=== PATIENT | female | born 1965 | race Two or more races ===

== ENCOUNTER 2022-12-04 17:46 | Emergency (ER) | payer OTHER ==
[~2022-12-04] VITALS: Ht 167.6 cm; Wt 131.2 kg
[2022-12-04 18:00] VITALS: BP 129/60; RESP 24; O2SAT 95
[2022-12-04 18:31] VITALS: PULSE 90
[2022-12-04 19:09] LABS: Basophils # (auto) 0.1 10 ^3/uL (0-0.2); Eosinophils # (auto) 0.3 10 ^3/uL (0-0.8); Hemoglobin 13.1 g/dL (12.2-16.2); Mean Corpuscular Hemoglobin 26.6 pg (28.0-32.0); Monocytes # (auto) 0.9 10 ^3/uL (0-1.3); White Blood Cell 14.9 10^3/uL (4.4-10.8)
[2022-12-04 19:10] LABS: Basophils % (auto) 0.8 % (0.0-2.0); Hematocrit 40.1 % (36.0-46.0); Lymphocytes # (auto) 2.4 10 ^3/uL (0.4-5.4); Lymphocytes % (auto) 16.2 % (10.0-50.0); Mean Corpuscular Hgb Conc. 32.6 g/dL (32.0-36.0); Mean Corpuscular Volume 81.7 fL (80.0-100.0); Monocytes % (auto) 5.8 % (0.0-12.0); Neutrophils # (auto) 11.2 10 ^3/uL (1.6-8.6); Neutrophils % (auto) 75.2 % (37.0-80.0); Red Blood Cells 4.91 10^6/uL (4.0-5.20); Red Cell Distribution Width 15.2 % (11.8-14.3)
[2022-12-04 19:37] LABS: Alanine Aminotransferase 33 U/L (7-40); Albumin 4.3 g/dL (3.2-4.8); Alkaline Phosphatase 145 U/L (46-116); Anion Gap 8 (5-15); Aspartate Aminotransferase 30 U/L (13-40); BUN/Creatinine Ratio 15.8 (10.0-20.0); Blood Urea Nitrogen 22 mg/dL (9-23); Calcium 9.4 mg/dL (8.7-10.4); Carbon Dioxide 25 mmol/L (20-30); Chloride 101 mmol/L (98-107); Glucose 141 mg/dL (74-106); Potassium 4.1 mmol/L (3.5-5.1); Sodium 134 mmol/L (136-145)
[2022-12-04 19:38] LABS: Bilirubin, Total 0.4 mg/dL (0.2-1.0); Total Protein 7.6 g/dL (5.7-8.2)
[2022-12-04 20:20] LABS: Urine Bacteria FEW /hpf (None Seen); Urine Blood Negative /uL (Negative); Urine Clarity CLOUDY (Clear); Urine Color Yellow (Yellow); Urine Hyaline Cast FEW /lpf (0 - 2); Urine Mucus FEW (None Seen); Urine Protein, UAD 1+ (Negative); Urine Urobilinogen Normal (Negative); Urine WBC 1 /hpf (0 - 5); Urine pH 5.5 (5.0-8.0)
== END 2022-12-04 20:00 | disposition left against medical advice (07) ==
LOC: ER 17:46
DX: M79.89 Other specified soft tissue disorders (principal); M79.605 Pain in left leg; M79.604 Pain in right leg; R11.0 Nausea; Z53.21 Procedure and treatment not carried out due to patient leaving prior to being seen by health care provider
CPT/HCPCS: 36415; 80053; 81001; 83880; 84484; 85025; 93005

== ENCOUNTER 2023-07-22 18:08 | Inpatient (IN) | payer OTHER ==
[~2023-07-22] VITALS: Ht 167.6 cm; Wt 126.3 kg
[2023-07-22 19:33] LABS: Hemoglobin 16.2 g/dL (12.2-16.2); Mean Corpuscular Hemoglobin 27.5 pg (28.0-32.0); Mean Corpuscular Hgb Conc. 33.1 g/dL (32.0-36.0); Mean Corpuscular Volume 83.2 fL (80.0-100.0); Red Blood Cells 5.89 10^6/uL (4.0-5.20); Red Cell Distribution Width 15.5 % (11.8-14.3); White Blood Cell 26.4 10^3/uL (4.4-10.8)
[2023-07-22 19:36] LABS: Basophils % (manual) 0 (0.0-2.0); Blast Cells 0; Eosinophils % (manual) 0 (0-7); Metamyelocytes % 0; Myelocytes % 0; Promyelocytes % 0; Reactive Lymphocytes 0
[2023-07-22 20:15] LABS: Alanine Aminotransferase 13 U/L (7-40); Albumin 4.8 g/dL (3.2-4.8); Alkaline Phosphatase 125 U/L (46-116); Anion Gap 19 (5-15); Aspartate Aminotransferase 23 U/L (13-40); BUN/Creatinine Ratio 9.7 (10.0-20.0); Blood Urea Nitrogen 27 mg/dL (9-23); Calcium 10.8 mg/dL (8.7-10.4); Carbon Dioxide 19 mmol/L (20-30); Chloride 99 mmol/L (98-107); Glucose 200 mg/dL (74-106); Lipase 45 U/L (12-53); Potassium 2.8 mmol/L (3.5-5.1); Sodium 137 mmol/L (136-145)
[2023-07-22 20:16] LABS: Bilirubin, Total 1.5 mg/dL (0.2-1.0); Total Protein 8.2 g/dL (5.7-8.2)
[2023-07-22 20:18] LABS: Band Neutrophils % (manual) 15; Lymphocytes % (manual) 11 (10.0-50.0); Monocytes % (manual) 18 (0-12)
[2023-07-22 20:19] LABS: Platelet Estimate Increased
[2023-07-22] MEDS: cefTRIAXone 1GM/50ML D5W 50 ML IV ONE (20:30)
[2023-07-22] MEDS: PROCHLORPERAZINE EDISYLATE 5 MG/ML 2ML VIAL IV ONE (20:32)
[2023-07-22] MEDS: PANTOPRAZOLE 40 MG/10 ML VIAL INJ IV ONE (20:32)
[2023-07-22 21:46] LABS: Lactic Acid w/Reflex 7.8 mmol/L (0.4-2.0)
[2023-07-22 22:22] VITALS: PULSE 131; RESP 20; O2SAT 95
[2023-07-22] MEDS: SODIUM CHLORIDE 0.9% 500 ML IVB ONE (22:22)
[2023-07-22] MEDS: POTASSIUM CHL 20MEQ/100ML 100 ML IV ONE (22:26)
[2023-07-22] MEDS: POTASSIUM CHL 20 Meq TABLET PO ONE (22:43)
[2023-07-22] MEDS: HYDROmorphone HCL 2 MG/ML VL/or syr IV ONE (23:03)
[2023-07-22] MEDS: VANCOMYCIN 1GM/200ML 200 ML IV ONE (23:45)
[2023-07-23] VITALS (13 sets, daily range): BP systolic 80–137; BP diastolic 34–114; PULSE 89–117; RESP 15–35; TEMP 98.5; O2SAT 91–100
[2023-07-23] MEDS: SODIUM CHLORIDE 0.9% 1,000 ML IV ONE ×3 (01:30→17:26)
[2023-07-23 02:46] LABS: Urine Amorphous Crystal FEW /hpf (None Seen); Urine Bacteria FEW /hpf (None Seen); Urine Blood Negative /uL (Negative); Urine Clarity Ex.Turbid (Clear); Urine Color Light-Orange (Yellow); Urine Hyaline Cast MANY /lpf (0 - 2); Urine Mucus FEW (None Seen); Urine Protein, UAD 2+ (Negative); Urine Specific Gravity 1.023 (1.001-1.035); Urine Urobilinogen Normal (Negative); Urine WBC 6 /hpf (0 - 5)
[2023-07-23] MEDS ORDERED: MORPHINE SULFATE INJ 2 MG/ml SYRG IV PRN (03:15)
[2023-07-23] MEDS ORDERED: VANCOMYCIN PER PHARMACY 0 MG IV SCH (03:15)
[2023-07-23] MEDS ORDERED: NITROGLYCERIN 0.4 MG SL TAB SL PRN (03:15)
[2023-07-23] MEDS: FUROSEMIDE 20 MG/2 ML VIAL IV ONE (03:36)
[2023-07-23] MEDS: PIPERACILLIN-TAZOB 3.375GM 100 ML IV SCH (04:07)
[2023-07-23 04:35] LABS: Basophils # (auto) 0 10 ^3/uL (0-0.2); Eosinophils # (auto) 0 10 ^3/uL (0-0.8); Lymphocytes # (auto) 1.4 10 ^3/uL (0.4-5.4)
[2023-07-23 04:37] LABS: Basophils % (auto) 0.1 % (0.0-2.0); Hematocrit 51.7 % (36.0-46.0); Hemoglobin 16.6 g/dL (12.2-16.2); Lymphocytes % (auto) 7.4 % (10.0-50.0); Mean Corpuscular Hemoglobin 27.2 pg (28.0-32.0); Mean Corpuscular Hgb Conc. 32.1 g/dL (32.0-36.0); Mean Corpuscular Volume 84.8 fL (80.0-100.0); Monocytes # (auto) 1.5 10 ^3/uL (0-1.3); Monocytes % (auto) 7.6 % (0.0-12.0); Neutrophils # (auto) 16.2 10 ^3/uL (1.6-8.6); Neutrophils % (auto) 84.9 % (37.0-80.0); Red Cell Distribution Width 15.7 % (11.8-14.3); White Blood Cell 19.1 10^3/uL (4.4-10.8)
[2023-07-23 04:43] LABS: Alanine Aminotransferase 20 U/L (7-40); Albumin 4.3 g/dL (3.2-4.8); Alkaline Phosphatase 108 U/L (46-116); Anion Gap 16 (5-15); Aspartate Aminotransferase 45 U/L (13-40); BUN/Creatinine Ratio 8.2 (10.0-20.0); Bilirubin, Total 1.6 mg/dL (0.2-1.0); Blood Urea Nitrogen 27 mg/dL (9-23); Calcium 9.9 mg/dL (8.7-10.4); Carbon Dioxide 17 mmol/L (20-30); Chloride 103 mmol/L (98-107); Glucose 159 mg/dL (74-106); Potassium 3.7 mmol/L (3.5-5.1); Sodium 136 mmol/L (136-145); Total Protein 7.4 g/dL (5.7-8.2)
[2023-07-23] MEDS: HYDROcodone-ACET 5/325MG TAB PO PRN (05:06)
[2023-07-23] MEDS: SODIUM CHLORIDE 0.9% 2,000 ML IV ONE ×2 (07:50→12:08)
[2023-07-23] MEDS: ADENOSINE 6 MG/2 ML INJ IV ONE ×2 (07:51→07:54)
[2023-07-23] MEDS: ONDANSETRON HCL 4 MG/2 ML VIAL ONE (07:54)
[2023-07-23] MEDS: MORPHINE SULFATE 4 MG/ML SYR/VIAL IV ONE (07:54)
[2023-07-23] MEDS: MORPHINE SULFATE 4 MG/ML SYR/VIAL ONE (07:54)
[2023-07-23] MEDS: ONDANSETRON HCL 4 MG/2 ML VIAL IV ONE (07:55)
[2023-07-23] MEDS: HYDROmorphone HCL 2 MG/ML VL/or syr IV ONE ×2 (08:00→14:05)
[2023-07-23 08:21] LABS: Amphetamine Screen, Urine Pos (NEGATIVE); Barbiturate Scree,Urine Neg (NEGATIVE); Benzodiazephine Screen, Urine Neg (NEGATIVE); Cannabinoid Screen, Urine Neg (NEGATIVE); Cocaine Screen, Urine Neg (NEGATIVE); Opiate Scree,Urine Neg (NEGATIVE); Phencyclidine Screen, Urine Neg (NEGATIVE)
[2023-07-23] MEDS: ALBUMIN 25% 100 ML IV ONE (09:38)
[2023-07-23] MEDS: METOPROLOL TARTRATE 25 MG TAB PO SCH (10:00)
[2023-07-23] MEDS: MAGNESIUM SULFATE 1GM/100ML 100 ML IV SCH (10:30)
[2023-07-23 11:12] LABS: Creatinine, Urine 233.81 mg/dL (30.0-125.0)
[2023-07-23 11:14] LABS: Base Excess -10.7 mmol/L (-2.0-2.0)
[2023-07-23] MEDS ORDERED: D5W/SOD CHL 0.45%/KCL 20MEQ 1,000 ML IV SCH (11:15)
[2023-07-23] MEDS: MEROPENEM 1GM IVPB 50 ML IV ONE (11:28)
[2023-07-23 12:05] LABS: INR 1.32 (0.9-1.15); Partial Thromboplastin Time 27.9 SEC (24.5-34.5); Prothrombin Time 13.7 sec (9.3-11.8); Triglycerides 99 mg/dL (< 150)
[2023-07-23 12:06] LABS: LDL Cholesterol 27 mg/dL (< 100)
[2023-07-23 12:07] LABS: Bilirubin, Direct 1.4 mg/dL (<0.3); Cholesterol 80 mg/dL (< 200); HDL Cholesterol 21 mg/dL (40-59)
[2023-07-23 13:29] LABS: CRP High Sensitivity > 20.00 mg/dL (<1.0)
[2023-07-23] MEDS: SODIUM BICARB 8.4% 50Meq/50ml SYR Vial IV ONE (14:57)
[2023-07-23] MEDS: NOREPINEPHRINE 8 MG/250ML KIT 250 ML IV SCH (14:58)
[2023-07-23] MEDS: POTASSIUM CHL 20MEQ/100ML 100 ML IV ONE (17:25)
[2023-07-23] MEDS: MORPHINE SULFATE INJ 2 MG/ml SYRG IV PRN (18:48)
[2023-07-23] MEDS: ONDANSETRON HCL 4 MG/2 ML VIAL IV PRN (18:50)
[2023-07-23] MEDS: MEROPENEM 500MG IVPB 50 ML IV SCH (21:26)
[2023-07-23 22:55] LABS: Rapid Influenza A Negative (Negative); Rapid Influenza B Negative (Negative)
[2023-07-23 23:40] LABS: Base Excess -13.2 mmol/L (-2.0-2.0)
[2023-07-24] VITALS (118 sets, daily range): BP systolic 49–146; BP diastolic 18–122; PULSE 81–159; RESP 14–39; TEMP 98.3–103.3; O2SAT 70–100
[2023-07-24] MEDS: SODIUM BICARB 50mEq/50ml Vial 50 ML in SOD CHL 0.45% 1,000 ML IV SCH (00:42)
[2023-07-24] MEDS: ALBUMIN 5% 250 ML IV ONE (00:42)
[2023-07-24] MEDS: SODIUM BICARB 8.4% 50Meq/50ml SYR Vial IV ONE ×2 (00:42→07:58)
[2023-07-24 03:03] LABS: Hemoglobin 12.1 g/dL (12.2-16.2); Mean Corpuscular Volume 82.9 fL (80.0-100.0)
[2023-07-24 03:04] LABS: Hematocrit 37.1 % (36.0-46.0); Mean Corpuscular Hemoglobin 27.1 pg (28.0-32.0); Mean Corpuscular Hgb Conc. 32.7 g/dL (32.0-36.0); Red Blood Cells 4.47 10^6/uL (4.0-5.20); Red Cell Distribution Width 15.6 % (11.8-14.3); White Blood Cell 11.2 10^3/uL (4.4-10.8)
[2023-07-24 03:30] LABS: Alanine Aminotransferase 82 U/L (7-40); Albumin 3.7 g/dL (3.2-4.8); Alkaline Phosphatase 71 U/L (46-116); Anion Gap 15 (5-15); Aspartate Aminotransferase 124 U/L (13-40); BUN/Creatinine Ratio 11.8 (10.0-20.0); Calcium 8.9 mg/dL (8.5-10.1); Carbon Dioxide 14 mmol/L (20-30); Chloride 108 mmol/L (98-107); Creatine Kinase IFCC 594 U/L (34-145); Glucose 96 mg/dL (74-106); Magnesium 1.7 mg/dL (1.6-2.6); Potassium 4.6 mmol/L (3.5-5.1); Sodium 137 mmol/L (136-145)
[2023-07-24 03:31] LABS: Bilirubin, Total 2.4 mg/dL (0.2-1.0); Total Protein 6.1 g/dL (5.7-8.2)
[2023-07-24 03:35] LABS: Blood Urea Nitrogen 50 mg/dL (9-23)
[2023-07-24 03:37] LABS: Lactic Acid w/Reflex 3.7 mmol/L (0.4-2.0)
[2023-07-24 03:38] LABS: Basophils % (manual) 0 (0.0-2.0); Blast Cells 0; Eosinophils % (manual) 0 (0-7); Metamyelocytes % 0; Promyelocytes % 0; Reactive Lymphocytes 0
[2023-07-24] MEDS: KETOROLAC TROMETH 30 MG/ML 1ML VIAL IV ONE (04:06)
[2023-07-24] MEDS: FUROSEMIDE 100 MG/10ML VIAL IV ONE (04:08)
[2023-07-24] MEDS: FUROSEMIDE INJECTION 10 ML ONE (04:10)
[2023-07-24 04:18] LABS: Band Neutrophils % (manual) 21; Lymphocytes % (manual) 12 (10.0-50.0); Monocytes % (manual) 8 (0-12); Myelocytes % 1
[2023-07-24 04:19] LABS: Platelet Estimate Adequate
[2023-07-24 07:20] LABS: Base Excess -11.7 mmol/L (-2.0-2.0)
[2023-07-24] MEDS: BUMETANIDE INJECTION 25 MG in GIVE UN-DILUTED 0 ML IV SCH (08:23)
[2023-07-24] MEDS ORDERED: PHENYLEPHRINE INJ 80 MG in SODIUM CHL 0.9% 242 ML IV SCH (08:30)
[2023-07-24] MEDS: VASOPRESSIN 20 UNITS in SODIUM CHL 0.9% 99 ML IV SCH (09:15)
[2023-07-24] MEDS: NOREPINEPHRINE BITARTRATE 32 MG in SODIUM CHL 0.9% 218 ML IV SCH (09:17)
[2023-07-24] MEDS: LINEZOLID 600MG/300ML 300 ML IV SCH (09:44)
[2023-07-24 10:00] LABS: Base Excess -9.2 mmol/L (-2.0-2.0)
[2023-07-24] MEDS: LORazepam 2MG/ML-1ML VIAL IV PRN (10:48)
[2023-07-24] MEDS: LIDOCAINE 5% TOPICAL PATCH TOP ONE (11:56)
[2023-07-24 15:00] LABS: Lactic Acid w/Reflex 3.4 mmol/L (0.4-2.0)
[2023-07-24] MEDS: LEVALBUTEROL HCL 1.25 MG/3 ML NEB NEB PRN (15:24)
[2023-07-24] MEDS: IPRATROPIUM BROM 0.5 MG/2.5ML INH SOL NEB PRN (15:24)
[2023-07-24] MEDS: LORazepam 2MG/ML-1ML VIAL IV ONE (15:49)
[2023-07-24] MEDS: ROCURONIUM 10MG/ML 10ML VIAL IV ONE (16:24)
[2023-07-24] MEDS: ETOMIDATE (2MG/ML) 20ML VIAL IV ONE (16:24)
[2023-07-24] MEDS: MIDAZOLAM DRIP 50 mg/50mL 50 ML IV ONE (16:26)
[2023-07-24] MEDS: fentaNYL Drip 2500mCg/250mlNS 250 ML IV ONE (16:27)
[2023-07-24] MEDS: MIDAZOLAM DRIP 50 mg/50mL 50 ML IV SCH ×2 (16:30→22:18)
[2023-07-24] MEDS: PROPOFOL 100 ML IV SCH (16:30)
[2023-07-24] MEDS: fentaNYL Drip 2500mCg/250mlNS 250 ML IV SCH (16:59)
[2023-07-24] MEDS: ACETAMINOPHEN 650 MG RECT SUPP PR ONE ×2 (17:27→17:43)
[2023-07-24] MEDS: ACETAMINOPHEN IV 1000 MG/100ML (10MG/ML) IV PRN (18:35)
[2023-07-24] MEDS: EPINEPHrine HCL 250 ML IV SCH (18:42)
[2023-07-24 21:04] LABS: Chloride 105 mmol/L (98-107); Potassium 5.4 mmol/L (3.5-5.1); Sodium 139 mmol/L (136-145)
[2023-07-24 21:05] LABS: Anion Gap 14 (5-15); Carbon Dioxide 20 mmol/L (20-30)
[2023-07-24 21:06] LABS: Calcium 9.2 mg/dL (8.5-10.1)
[2023-07-24 21:10] LABS: Glucose 132 mg/dL (74-106)
[2023-07-24 21:11] LABS: BUN/Creatinine Ratio 14.4 (10.0-20.0)
[2023-07-24 21:34] LABS: Blood Urea Nitrogen 68 mg/dL (9-23)
[2023-07-24] MEDS ORDERED: VANCOMYCIN 1GM/200ML 200 ML IV ONE (22:00)
[2023-07-24 22:46] LABS: Base Excess -10.7 mmol/L (-2.0-2.0)
[2023-07-24] MEDS: SODIUM ZIRCONIUM CYCL 10 GM PAK PO ONE (23:55)
[2023-07-24] MEDS: ACETAMINOPHEN 325 MG TAB PO PRN (23:56)
[2023-07-25] VITALS (134 sets, daily range): BP systolic 67–186; BP diastolic 28–120; PULSE 86–148; RESP 16–28; TEMP 97.9–103.6; O2SAT 82–100
[2023-07-25 05:24] LABS: Hematocrit 43.5 % (36.0-46.0); Hemoglobin 14.2 g/dL (12.2-16.2); Mean Corpuscular Hemoglobin 26.9 pg (28.0-32.0); Mean Corpuscular Hgb Conc. 32.5 g/dL (32.0-36.0); Mean Corpuscular Volume 82.7 fL (80.0-100.0); Red Blood Cells 5.26 10^6/uL (4.0-5.20); Red Cell Distribution Width 16.2 % (11.8-14.3); White Blood Cell 12.8 10^3/uL (4.4-10.8)
[2023-07-25 05:26] LABS: Protein, Urine 179.6 mg/dL (0.0-11.9)
[2023-07-25 05:27] LABS: Basophils % (manual) 0 (0.0-2.0); Blast Cells 0; Eosinophils % (manual) 0 (0-7); Metamyelocytes % 0; Myelocytes % 0; Promyelocytes % 0
[2023-07-25 05:29] LABS: Creatinine, Urine 115.34 mg/dL (30.0-125.0); Urine Protein/Creatinine Ratio 1.56
[2023-07-25 05:38] LABS: Alanine Aminotransferase 102 U/L (7-40); Albumin 3.5 g/dL (3.2-4.8); Alkaline Phosphatase 123 U/L (46-116); Anion Gap 16 (5-15); Aspartate Aminotransferase 124 U/L (13-40); BUN/Creatinine Ratio 10.3 (10.0-20.0); Calcium 9.3 mg/dL (8.7-10.4); Carbon Dioxide 15 mmol/L (20-30); Chloride 105 mmol/L (98-107); Glucose 109 mg/dL (74-106); Magnesium 2.3 mg/dL (1.6-2.6); Potassium 5.2 mmol/L (3.5-5.1); Sodium 136 mmol/L (136-145); Total Protein 6.2 g/dL (5.7-8.2)
[2023-07-25 05:47] LABS: Blood Urea Nitrogen 52 mg/dL (9-23)
[2023-07-25 05:50] LABS: Lactic Acid w/Reflex 2.9 mmol/L (0.4-2.0)
[2023-07-25 05:56] LABS: Bilirubin, Total 2.4 mg/dL (0.2-1.0)
[2023-07-25 06:13] LABS: Lymphocytes % (manual) 20 (10.0-50.0); Monocytes % (manual) 9 (0-12); Reactive Lymphocytes 1
[2023-07-25 06:14] LABS: Band Neutrophils % (manual) 11; Platelet Estimate Adequate
[2023-07-25 06:16] LABS: Large Platelets FEW
[2023-07-25] MEDS: SODIUM CHL 0.9% 1000 ML BAG XX ONE (07:15)
[2023-07-25 07:21] LABS: Base Excess -11.5 mmol/L (-2.0-2.0)
[2023-07-25 08:07] LABS: Complement C3 117 mg/dL (82-167)
[2023-07-25] MEDS: SODIUM BICARB 8.4% 50Meq/50ml SYR Vial IV ONE (08:43)
[2023-07-25 09:03] LABS: % Iron Saturation 4.7 % (15-50)
[2023-07-25] MEDS ORDERED: ENOXAPARIN SOD 40 MG/0.4 ML SYRINGE SC SCH (10:00)
[2023-07-25 12:07] LABS: Anti-Centromere B Antibody <0.2 AI (0.0-0.9); Anti-Jo-1 Antibody <0.2 AI (0.0-0.9); Anti-dsDNA Antibody <1 IU/mL (0-9); Antichromatin Antibody <0.2 AI (0.0-0.9); Antiscleroderma-70 Antibody <0.2 AI (0.0-0.9); RNP Antibody <0.2 AI (0.0-0.9); Sjogren's Anti-SS-A Antibody <0.2 AI (0.0-0.9); Sjogren's Anti-SS-B Antibody <0.2 AI (0.0-0.9); Smith Antibody <0.2 AI (0.0-0.9)
[2023-07-25] MEDS: ALBUMIN 25% 100 ML IV ONE ×3 (13:15→16:55)
[2023-07-25 14:45] LABS: INR 1.25 (0.9-1.15); Partial Thromboplastin Time 32.8 SEC (24.5-34.5)
[2023-07-25] MEDS: ALBUMIN 25% 50 ML IV SCH (17:30)
[2023-07-25] MEDS ORDERED: CLINIMIX PER PHARMACY 0 ML IV SCH (19:45)
[2023-07-25] MEDS ORDERED: AMINO ACID INFUSION IN D10W 1,000 ML IV SCH (19:45)
[2023-07-25] MEDS: PHENYLEPHRINE INJ 80 MG in SODIUM CHL 0.9% 242 ML IV SCH (20:30)
[2023-07-25] MEDS: PHENYLEPHRINE HCL 10 MG/ML VL ONE (20:41)
[2023-07-25] MEDS: PHENYLEPHRINE IV 250 ML IV ONE (20:41)
[2023-07-25] MEDS: ENOXAPARIN SOD 30 MG/0.3 ML SYRINGE SC SCH (20:47)
[2023-07-25] MEDS ORDERED: EPOETIN ALFA-EPBX 10,000 UNIT/1ML VIAL SC ONE (21:00)
[2023-07-25] MEDS: AMINO ACID INFUSION IN D5W 1,000 ML IV NR (22:39)
[2023-07-26] VITALS (108 sets, daily range): BP systolic 58–170; BP diastolic 27–107; PULSE 78–104; RESP 12–26; TEMP 97.5–100.2; O2SAT 93–100
[2023-07-26] MEDS ORDERED: DEXTROSE (50%) 50ML SYRG IV SCH
[2023-07-26] MEDS ORDERED: ACCU-CHEK COMFORT CURVE STRIP VI SCH
[2023-07-26] MEDS ORDERED: InsuLIN REG 1unit/0.01ml Soln (100units/ml) SC SCH
[2023-07-26] MEDS: InsuLIN REG 1unit/0.01ml Soln (100units/ml) SC SCH
[2023-07-26] MEDS: ACCU-CHEK COMFORT CURVE STRIP VI SCH (00:29)
[2023-07-26 04:11] LABS: Hematocrit 33.6 % (36.0-46.0); Hemoglobin 11.4 g/dL (12.2-16.2); Mean Corpuscular Hemoglobin 27.2 pg (28.0-32.0); Mean Corpuscular Hgb Conc. 33.9 g/dL (32.0-36.0); Mean Corpuscular Volume 80.3 fL (80.0-100.0); Red Blood Cells 4.19 10^6/uL (4.0-5.20); Red Cell Distribution Width 15.7 % (11.8-14.3); White Blood Cell 10.9 10^3/uL (4.4-10.8)
[2023-07-26 04:17] LABS: Basophils % (manual) 0 (0.0-2.0); Blast Cells 0; Metamyelocytes % 0; Myelocytes % 0; Promyelocytes % 0; Reactive Lymphocytes 0
[2023-07-26 04:28] LABS: % Iron Saturation 7.7 % (15-50)
[2023-07-26 04:29] LABS: Alanine Aminotransferase 77 U/L (7-40); Albumin 3.7 g/dL (3.2-4.8); Alkaline Phosphatase 137 U/L (46-116); Anion Gap 12 (5-15); Aspartate Aminotransferase 160 U/L (13-40); Blood Urea Nitrogen 43 mg/dL (9-23); Calcium 9.1 mg/dL (8.5-10.1); Carbon Dioxide 27 mmol/L (20-30); Chloride 101 mmol/L (98-107); Glucose 133 mg/dL (74-106); Potassium 3.9 mmol/L (3.5-5.1); Sodium 140 mmol/L (136-145)
[2023-07-26 04:35] LABS: Band Neutrophils % (manual) 5; Eosinophils % (manual) 1 (0-7); Lymphocytes % (manual) 14 (10.0-50.0); Monocytes % (manual) 7 (0-12); Platelet Estimate Adequate
[2023-07-26] MEDS: SODIUM CHL 0.9% 1000 ML BAG XX ONE (07:00)
[2023-07-26 09:33] LABS: Base Excess 3.3 mmol/L (-2.0-2.0)
[2023-07-26 09:50] LABS: Hepatitis B Surface Antigen Negative (Negative)
[2023-07-26 10:12] LABS: Hepatitis A Ab IgM Negative; Hepatitis B Core IgM Negative; Hepatitis C Antibody Negative (Negative)
[2023-07-26 12:06] LABS: RPR Quant 1:32 titer (NonRea<1:1)
[2023-07-26] MEDS: CATHFLO ACTIVASE (ALTEPLASE) 2 MG VIAL IV ONE (12:16)
[2023-07-26] MEDS: FUROSEMIDE 40 MG/4 ML VIAL IV ONE (13:32)
[2023-07-26] MEDS: HYDROCORTISONE SOD SUCC 100 MG/2ML INJ VIAL IV SCH (13:37)
[2023-07-26 17:06] LABS: Antimyeloperoxidase (MPO) Ab <0.2 units (0.0-0.9); Antiproteinase 3 (PR-3) Ab <0.2 units (0.0-0.9)
[2023-07-26] MEDS: AMINO ACID INFUSION IN D5W 1,000 ML IV NR (20:33)
[2023-07-26] MEDS ORDERED: EPOETIN ALFA-EPBX 10,000 UNIT/1ML VIAL SC ONE (21:00)
[2023-07-27] VITALS (107 sets, daily range): BP systolic 88–141; BP diastolic 48–86; PULSE 77–94; RESP 14–22; TEMP 98.2–100.8; O2SAT 89–100
[2023-07-27] MEDS: GASTROGRAFIN 120 ML SOL ONE (02:24)
[2023-07-27 04:20] LABS: Hemoglobin 11.5 g/dL (12.2-16.2)
[2023-07-27 04:22] LABS: Hematocrit 34.7 % (36.0-46.0); Mean Corpuscular Hemoglobin 26.7 pg (28.0-32.0); Mean Corpuscular Hgb Conc. 33.2 g/dL (32.0-36.0); Mean Corpuscular Volume 80.4 fL (80.0-100.0); Red Blood Cells 4.31 10^6/uL (4.0-5.20); Red Cell Distribution Width 15.6 % (11.8-14.3)
[2023-07-27 04:29] LABS: Basophils % (manual) 0 (0.0-2.0); Blast Cells 0; Eosinophils % (manual) 0 (0-7); Metamyelocytes % 0; Myelocytes % 0; Promyelocytes % 0; Reactive Lymphocytes 0
[2023-07-27 04:41] LABS: Alanine Aminotransferase 64 U/L (7-40); Alkaline Phosphatase 137 U/L (46-116); Anion Gap 7 (5-15); BUN/Creatinine Ratio 29.8 (10.0-20.0); Calcium 9.4 mg/dL (8.5-10.1); Carbon Dioxide 32 mmol/L (20-30); Chloride 100 mmol/L (98-107); Glucose 159 mg/dL (74-106); Potassium 3.6 mmol/L (3.5-5.1); Sodium 139 mmol/L (136-145)
[2023-07-27 04:42] LABS: Albumin 3.6 g/dL (3.2-4.8); Aspartate Aminotransferase 117 U/L (13-40); Bilirubin, Total 1.6 mg/dL (0.2-1.0); Blood Urea Nitrogen 59 mg/dL (9-23); Phosphorus 5.9 mg/dL (2.4-5.1); Total Protein 6.2 g/dL (5.7-8.2)
[2023-07-27 04:48] LABS: CRP High Sensitivity > 20.00 mg/dL (<1.0)
[2023-07-27 04:56] LABS: Band Neutrophils % (manual) 7; Lymphocytes % (manual) 8 (10.0-50.0); Monocytes % (manual) 2 (0-12); Platelet Estimate Adequate
[2023-07-27] MEDS: POTASSIUM CHL 20MEQ/100ML 100 ML IV ONE (06:45)
[2023-07-27 07:46] LABS: Base Excess 3.5 mmol/L (-2.0-2.0)
[2023-07-27] MEDS: FUROSEMIDE 40 MG/4 ML VIAL IV SCH (09:49)
[2023-07-27] MEDS: NOREPINEPHRINE BITARTRATE 32 MG in SODIUM CHL 0.9% 218 ML IV SCH (10:07)
[2023-07-27] MEDS ORDERED: TPN PER PHARMACY 0 ML IV SCH ×2 (12:30)
[2023-07-27] MEDS: PANTOPRAZOLE 40 MG/10 ML VIAL INJ IV ONE (12:38)
[2023-07-27 13:07] LABS: Cytoplasmic (C-ANCA) <1:20 titer (Neg:<1:20); Perinuclear (P-ANCA) <1:20 titer (Neg:<1:20)
[2023-07-27] MEDS ORDERED: AMINO ACID INFUSION IN D5W 1,000 ML IV SCH (20:00)
[2023-07-27] MEDS ORDERED: TPN PER PHARMACY IV NR (20:00)
[2023-07-27] MEDS: TPN PER PHARMACY IV NR (20:25)
[2023-07-27] MEDS: MEROPENEM 1GM IVPB 50 ML IV SCH (21:50)
[2023-07-28] VITALS (102 sets, daily range): BP systolic 91–143; BP diastolic 50–92; PULSE 74–94; RESP 6–22; TEMP 97.9–100.9; O2SAT 70–100
[2023-07-28 04:26] LABS: Hemoglobin 11.6 g/dL (12.2-16.2)
[2023-07-28 04:31] LABS: Hematocrit 34.7 % (36.0-46.0); Mean Corpuscular Hemoglobin 26.9 pg (28.0-32.0); Mean Corpuscular Hgb Conc. 33.4 g/dL (32.0-36.0); Mean Corpuscular Volume 80.5 fL (80.0-100.0); Red Blood Cells 4.31 10^6/uL (4.0-5.20); Red Cell Distribution Width 15.8 % (11.8-14.3); White Blood Cell 16.7 10^3/uL (4.4-10.8)
[2023-07-28 04:34] LABS: Basophils % (manual) 0 (0.0-2.0); Blast Cells 0; Eosinophils % (manual) 0 (0-7); Metamyelocytes % 0; Myelocytes % 0; Promyelocytes % 0; Reactive Lymphocytes 0
[2023-07-28 04:40] LABS: INR 1.24 (0.9-1.15); Partial Thromboplastin Time 26.2 SEC (24.5-34.5); Prothrombin Time 12.9 sec (9.3-11.8)
[2023-07-28 04:43] LABS: Alanine Aminotransferase 53 U/L (7-40); Albumin 3.5 g/dL (3.2-4.8); Alkaline Phosphatase 147 U/L (46-116); Anion Gap 7 (5-15); Aspartate Aminotransferase 132 U/L (13-40); BUN/Creatinine Ratio 46.9 (10.0-20.0); Calcium 9.1 mg/dL (8.5-10.1); Carbon Dioxide 32 mmol/L (20-30); Chloride 103 mmol/L (98-107); Glucose 152 mg/dL (74-106); Magnesium 2.3 mg/dL (1.6-2.6); Potassium 3.2 mmol/L (3.5-5.1); Sodium 142 mmol/L (136-145)
[2023-07-28 04:44] LABS: Phosphorus 5.2 mg/dL (2.4-5.1); Total Protein 6.2 g/dL (5.7-8.2)
[2023-07-28 04:51] LABS: CRP High Sensitivity > 20.00 mg/dL (<1.0)
[2023-07-28 04:53] LABS: Blood Urea Nitrogen 82 mg/dL (9-23)
[2023-07-28 04:56] LABS: Band Neutrophils % (manual) 3; Lymphocytes % (manual) 14 (10.0-50.0); Monocytes % (manual) 2 (0-12)
[2023-07-28 04:57] LABS: Platelet Estimate Adequate
[2023-07-28 07:13] LABS: Base Excess 5.6 mmol/L (-2.0-2.0)
[2023-07-28] MEDS: POTASSIUM CHL 20MEQ/100ML 100 ML IV SCH (08:02)
[2023-07-28] MEDS ORDERED: TPN PER PHARMACY 0 ML IV SCH (09:00)
[2023-07-28] MEDS: TPN PER PHARMACY IV NR ×2 (10:00→20:12)
[2023-07-28] MEDS: HYDROCORTISONE SOD SUCC 100 MG/2ML INJ VIAL IV SCH (10:30)
[2023-07-28] MEDS: ENOXAPARIN SOD 40 MG/0.4 ML SYRINGE SC SCH (10:30)
[2023-07-28] MEDS: PANTOPRAZOLE 40 MG/10 ML VIAL INJ IV SCH (10:30)
[2023-07-29] VITALS (110 sets, daily range): BP systolic 89–138; BP diastolic 49–79; PULSE 76–92; RESP 11–21; TEMP 98.4–100.7; O2SAT 90–99
[2023-07-29 04:09] LABS: Alanine Aminotransferase 40 U/L (7-40); Albumin 3.3 g/dL (3.2-4.8); Alkaline Phosphatase 136 U/L (46-116); Anion Gap 7 (5-15); Aspartate Aminotransferase 114 U/L (13-40); BUN/Creatinine Ratio 70.9 (10.0-20.0); Calcium 9.1 mg/dL (8.7-10.4); Carbon Dioxide 33 mmol/L (20-30); Chloride 107 mmol/L (98-107); Glucose 162 mg/dL (74-106); Magnesium 2.5 mg/dL (1.6-2.6); Potassium 3.5 mmol/L (3.5-5.1)
[2023-07-29 04:10] LABS: Bilirubin, Total 0.9 mg/dL (0.2-1.0); Phosphorus 4.9 mg/dL (2.4-5.1); Total Protein 6.1 g/dL (5.7-8.2)
[2023-07-29 04:33] LABS: Blood Urea Nitrogen 90 mg/dL (9-23); Sodium 147 mmol/L (136-145)
[2023-07-29 06:30] LABS: Base Excess 5.3 mmol/L (-2.0-2.0)
[2023-07-29] MEDS: SOD CHL 0.45% 1,000 ML IV ONE (06:38)
[2023-07-29] MEDS: POTASSIUM CHL 20MEQ/100ML 100 ML IV ONE (08:40)
[2023-07-29 10:17] LABS: Urine Amorphous Crystal FEW /hpf (None Seen); Urine Bacteria FEW /hpf (None Seen); Urine Blood 1+ /uL (Negative); Urine Color Yellow (Yellow); Urine Hyaline Cast FEW /lpf (0 - 2); Urine Mucus FEW (None Seen); Urine Protein, UAD TRACE (Negative); Urine Urobilinogen Normal (Negative); Urine WBC 5 /hpf (0 - 5); Urine pH 5.5 (5.0-9.0)
[2023-07-29 10:19] LABS: Urine Clarity Hazy (Clear)
[2023-07-29] MEDS: METOCLOPRAMIDE HCL 5MG/ml INJ 2ml VIAL IV SCH (13:44)
[2023-07-29] MEDS: TPN PER PHARMACY IV NR (21:37)
[2023-07-30] VITALS (107 sets, daily range): BP systolic 84–157; BP diastolic 53–116; PULSE 73–98; RESP 9–24; TEMP 97–99; O2SAT 85–98
[2023-07-30 04:07] LABS: Basophils # (auto) 0 10 ^3/uL (0-0.2); Basophils % (auto) 0.1 % (0.0-2.0); Eosinophils # (auto) 0.1 10 ^3/uL (0-0.8); Eosinophils % (auto) 0.2 % (0.0-7.0); Hematocrit 36.5 % (36.0-46.0); Hemoglobin 11.7 g/dL (12.2-16.2); Lymphocytes # (auto) 2.3 10 ^3/uL (0.4-5.4); Lymphocytes % (auto) 9.8 % (10.0-50.0); Mean Corpuscular Hemoglobin 26.3 pg (28.0-32.0); Mean Corpuscular Hgb Conc. 32.1 g/dL (32.0-36.0); Mean Corpuscular Volume 82.1 fL (80.0-100.0); Monocytes # (auto) 0.7 10 ^3/uL (0-1.3); Monocytes % (auto) 3.2 % (0.0-12.0); Neutrophils # (auto) 20.3 10 ^3/uL (1.6-8.6); Neutrophils % (auto) 86.7 % (37.0-80.0); Red Blood Cells 4.45 10^6/uL (4.0-5.20); Red Cell Distribution Width 15.9 % (11.8-14.3); White Blood Cell 23.4 10^3/uL (4.4-10.8)
[2023-07-30 04:16] LABS: Alanine Aminotransferase 35 U/L (7-40); Albumin 3.2 g/dL (3.2-4.8); Alkaline Phosphatase 158 U/L (46-116); Anion Gap 6 (5-15); Aspartate Aminotransferase 90 U/L (13-40); BUN/Creatinine Ratio 82.7 (10.0-20.0); Carbon Dioxide 34 mmol/L (20-30); Chloride 111 mmol/L (98-107); Glucose 153 mg/dL (74-106); Magnesium 2.5 mg/dL (1.6-2.6); Potassium 3.7 mmol/L (3.5-5.1); Sodium 151 mmol/L (136-145); Triglycerides 375 mg/dL (< 150)
[2023-07-30 04:17] LABS: Total Protein 6.2 g/dL (5.7-8.2)
[2023-07-30 04:27] LABS: Blood Urea Nitrogen 81 mg/dL (9-23)
[2023-07-30] MEDS: D5W 5% 1,000 ML IV SCH (06:48)
[2023-07-30 07:18] LABS: Base Excess 4.2 mmol/L (-2.0-2.0)
[2023-07-30] MEDS ORDERED: VANCOMYCIN PER PHARMACY 0 MG IV SCH (11:30)
[2023-07-30] MEDS: FLEET ENEMA(ADULT) 135 ML PR ONE (12:08)
[2023-07-30 14:18] LABS: Chloride 111 mmol/L (98-107); Potassium 3.9 mmol/L (3.5-5.1); Sodium 149 mmol/L (136-145)
[2023-07-30 14:19] LABS: Anion Gap 2 (5-15); Calcium 8.8 mg/dL (8.5-10.1); Carbon Dioxide 36 mmol/L (20-30)
[2023-07-30 14:24] LABS: BUN/Creatinine Ratio 82.7 (10.0-20.0); Glucose 246 mg/dL (74-106)
[2023-07-30 14:29] LABS: Blood Urea Nitrogen 67 mg/dL (9-23)
[2023-07-30] MEDS: VANCOMYCIN 1GM/200ML 200 ML IV SCH (15:10)
[2023-07-30] MEDS: AZITHROMYCIN 500MG/ 250ML 250 ML IV ONE (17:27)
[2023-07-30] MEDS: TPN PER PHARMACY IV NR (19:45)
[2023-07-30] MEDS: MICAFUNGIN SODIUM 100 MG in SODIUM CHL 0.9% 100 ML IV ONE (19:50)
[2023-07-31] VITALS (105 sets, daily range): BP systolic 76–168; BP diastolic 56–91; PULSE 80–101; RESP 10–21; TEMP 98.8–100.2; O2SAT 92–100
[2023-07-31 05:19] LABS: Hematocrit 32.9 % (36.0-46.0); Red Blood Cells 3.94 10^6/uL (4.0-5.20); White Blood Cell 22.9 10^3/uL (4.4-10.8)
[2023-07-31 05:21] LABS: Hemoglobin 10.4 g/dL (12.2-16.2); Mean Corpuscular Hemoglobin 26.4 pg (28.0-32.0); Mean Corpuscular Hgb Conc. 31.6 g/dL (32.0-36.0); Mean Corpuscular Volume 83.6 fL (80.0-100.0); Red Cell Distribution Width 16.3 % (11.8-14.3)
[2023-07-31 05:24] LABS: Basophils % (manual) 0 (0.0-2.0); Blast Cells 0; Eosinophils % (manual) 0 (0-7); Metamyelocytes % 0; Myelocytes % 0; Promyelocytes % 0; Reactive Lymphocytes 0
[2023-07-31 05:36] LABS: Alanine Aminotransferase 33 U/L (7-40); Albumin 2.9 g/dL (3.2-4.8); Alkaline Phosphatase 152 U/L (46-116); Anion Gap 6 (5-15); Aspartate Aminotransferase 79 U/L (13-40); BUN/Creatinine Ratio 66.3 (10.0-20.0); Bilirubin, Total 0.9 mg/dL (0.2-1.0); Blood Urea Nitrogen 61 mg/dL (9-23); Calcium 8.8 mg/dL (8.7-10.4); Carbon Dioxide 32 mmol/L (20-30); Chloride 109 mmol/L (98-107); Glucose 168 mg/dL (74-106); Phosphorus 4.9 mg/dL (2.4-5.1); Potassium 3.6 mmol/L (3.5-5.1); Sodium 147 mmol/L (136-145); Total Protein 5.8 g/dL (5.7-8.2)
[2023-07-31 05:49] LABS: Band Neutrophils % (manual) 4; Lymphocytes % (manual) 13 (10.0-50.0); Monocytes % (manual) 2 (0-12)
[2023-07-31 05:50] LABS: Anisocytosis Slight; Platelet Estimate Increased; Stomatocytes Moderate
[2023-07-31 07:06] LABS: Base Excess 6.6 mmol/L (-2.0-2.0)
[2023-07-31] MEDS: MICAFUNGIN SODIUM 100 MG in SODIUM CHL 0.9% 100 ML IV SCH (08:50)
[2023-07-31] MEDS: AZITHROMYCIN 500MG/ 250ML 250 ML IV SCH (09:59)
[2023-07-31 18:03] LABS: Chloride 108 mmol/L (98-107); Potassium 3.6 mmol/L (3.5-5.1); Sodium 146 mmol/L (136-145)
[2023-07-31 18:04] LABS: Anion Gap 7 (5-15); Calcium 8.4 mg/dL (8.5-10.1); Carbon Dioxide 31 mmol/L (20-30)
[2023-07-31 18:09] LABS: BUN/Creatinine Ratio 63.6 (10.0-20.0); Blood Urea Nitrogen 56 mg/dL (9-23); Glucose 165 mg/dL (74-106)
[2023-07-31] MEDS: TPN PER PHARMACY IV NR (20:00)
[2023-08-01] VITALS (103 sets, daily range): BP systolic 96–143; BP diastolic 62–85; PULSE 69–96; RESP 9–22; TEMP 99.6–100.8; O2SAT 88–100
[2023-08-01 04:14] LABS: Basophils # (auto) 0.1 10 ^3/uL (0-0.2); Basophils % (auto) 0.3 % (0.0-2.0); Hemoglobin 10.4 g/dL (12.2-16.2)
[2023-08-01 04:17] LABS: Eosinophils # (auto) 0.5 10 ^3/uL (0-0.8); Eosinophils % (auto) 2.2 % (0.0-7.0); Hematocrit 33.6 % (36.0-46.0); Lymphocytes # (auto) 2.2 10 ^3/uL (0.4-5.4); Lymphocytes % (auto) 9.8 % (10.0-50.0); Mean Corpuscular Hemoglobin 26.1 pg (28.0-32.0); Mean Corpuscular Volume 84.1 fL (80.0-100.0); Monocytes # (auto) 0.7 10 ^3/uL (0-1.3); Monocytes % (auto) 3.1 % (0.0-12.0); Neutrophils # (auto) 19.3 10 ^3/uL (1.6-8.6); Neutrophils % (auto) 84.6 % (37.0-80.0); Nucleated Red Blood Cells % 0.1 %; Red Cell Distribution Width 16.3 % (11.8-14.3); White Blood Cell 22.8 10^3/uL (4.4-10.8)
[2023-08-01 04:25] LABS: Alanine Aminotransferase 36 U/L (7-40); Albumin 2.8 g/dL (3.2-4.8); Alkaline Phosphatase 168 U/L (46-116); Anion Gap 5 (5-15); Aspartate Aminotransferase 70 U/L (13-40); BUN/Creatinine Ratio 62.8 (10.0-20.0); Blood Urea Nitrogen 49 mg/dL (9-23); Calcium 8.6 mg/dL (8.5-10.1); Carbon Dioxide 32 mmol/L (20-30); Chloride 106 mmol/L (98-107); Glucose 158 mg/dL (74-106); Phosphorus 4.4 mg/dL (2.4-5.1); Potassium 3.4 mmol/L (3.5-5.1); Sodium 143 mmol/L (136-145); Total Protein 5.7 g/dL (5.7-8.2)
[2023-08-01 04:29] LABS: INR 1.03 (0.9-1.15); Partial Thromboplastin Time 24.6 SEC (24.5-34.5); Prothrombin Time 10.9 sec (9.3-11.8)
[2023-08-01] MEDS: POTASSIUM CHL 20MEQ/100ML 100 ML IV SCH (06:30)
[2023-08-01 08:11] LABS: Base Excess 4.3 mmol/L (-2.0-2.0)
[2023-08-01] MEDS: VANCOMYCIN 1GM/200ML 200 ML IV SCH (10:39)
[2023-08-01 15:50] LABS: Chloride 107 mmol/L (98-107); Potassium 3.7 mmol/L (3.5-5.1); Sodium 142 mmol/L (136-145)
[2023-08-01 15:51] LABS: Anion Gap 4 (5-15); Calcium 8.4 mg/dL (8.5-10.1); Carbon Dioxide 31 mmol/L (20-30)
[2023-08-01 15:56] LABS: BUN/Creatinine Ratio 58.3 (10.0-20.0); Blood Urea Nitrogen 42 mg/dL (9-23); Glucose 187 mg/dL (74-106)
[2023-08-01] MEDS: POTASSIUM CHL 20MEQ/100ML 100 ML IV ONE (17:55)
[2023-08-01] MEDS: TPN PER PHARMACY IV NR (20:10)
[2023-08-02] VITALS (105 sets, daily range): BP systolic 77–135; BP diastolic 36–78; PULSE 68–97; RESP 13–21; TEMP 97.7–101.1; O2SAT 90–100
[2023-08-02 04:12] LABS: Basophils # (auto) 0.1 10 ^3/uL (0-0.2); Eosinophils # (auto) 0.4 10 ^3/uL (0-0.8); Lymphocytes # (auto) 2.1 10 ^3/uL (0.4-5.4)
[2023-08-02 04:17] LABS: Basophils % (auto) 0.4 % (0.0-2.0); Eosinophils % (auto) 1.8 % (0.0-7.0); Hematocrit 32.7 % (36.0-46.0); Hemoglobin 10.2 g/dL (12.2-16.2); Lymphocytes % (auto) 9.3 % (10.0-50.0); Mean Corpuscular Hemoglobin 26.3 pg (28.0-32.0); Mean Corpuscular Hgb Conc. 31.1 g/dL (32.0-36.0); Mean Corpuscular Volume 84.6 fL (80.0-100.0); Monocytes # (auto) 0.7 10 ^3/uL (0-1.3); Neutrophils # (auto) 19.2 10 ^3/uL (1.6-8.6); Neutrophils % (auto) 85.5 % (37.0-80.0); Red Blood Cells 3.87 10^6/uL (4.0-5.20); Red Cell Distribution Width 16.5 % (11.8-14.3); White Blood Cell 22.5 10^3/uL (4.4-10.8)
[2023-08-02 04:25] LABS: Alanine Aminotransferase 29 U/L (7-40); Albumin 2.6 g/dL (3.2-4.8); Alkaline Phosphatase 142 U/L (46-116); Anion Gap 7 (5-15); Aspartate Aminotransferase 47 U/L (13-40); Blood Urea Nitrogen 42 mg/dL (9-23); Calcium 8.6 mg/dL (8.7-10.4); Carbon Dioxide 28 mmol/L (20-30); Chloride 108 mmol/L (98-107); Glucose 146 mg/dL (74-106); Magnesium 1.9 mg/dL (1.6-2.6); Potassium 3.6 mmol/L (3.5-5.1); Sodium 143 mmol/L (136-145)
[2023-08-02 04:26] LABS: Bilirubin, Total 0.9 mg/dL (0.2-1.0); Total Protein 5.6 g/dL (5.7-8.2)
[2023-08-02 07:40] LABS: Base Excess 2.8 mmol/L (-2.0-2.0)
[2023-08-02] MEDS: CATHFLO ACTIVASE (ALTEPLASE) 2 MG VIAL IV ONE (10:48)
[2023-08-02] MEDS: METOCLOPRAMIDE HCL 5MG/ml INJ 2ml VIAL IV SCH (14:30)
[2023-08-02] MEDS: VANCOMYCIN 1GM/200ML 200 ML IV SCH ×2 (16:28→17:15)
[2023-08-02] MEDS: TPN PER PHARMACY IV NR (20:09)
[2023-08-03] VITALS (98 sets, daily range): BP systolic 96–153; BP diastolic 45–97; PULSE 87–101; RESP 11–23; TEMP 99.1–101.5; O2SAT 81–100
[2023-08-03 04:06] LABS: Eosinophils # (auto) 0.3 10 ^3/uL (0-0.8); Eosinophils % (auto) 1.5 % (0.0-7.0); Hemoglobin 10.4 g/dL (12.2-16.2); Neutrophils % (auto) 83.5 % (37.0-80.0)
[2023-08-03 04:09] LABS: Basophils # (auto) 0.1 10 ^3/uL (0-0.2); Basophils % (auto) 0.6 % (0.0-2.0); Hematocrit 32.6 % (36.0-46.0); Lymphocytes # (auto) 2.2 10 ^3/uL (0.4-5.4); Lymphocytes % (auto) 9.8 % (10.0-50.0); Mean Corpuscular Hemoglobin 26.8 pg (28.0-32.0); Mean Corpuscular Hgb Conc. 31.8 g/dL (32.0-36.0); Mean Corpuscular Volume 84.1 fL (80.0-100.0); Monocytes % (auto) 4.6 % (0.0-12.0); Neutrophils # (auto) 18.7 10 ^3/uL (1.6-8.6); Nucleated Red Blood Cells % 0.1 %; Red Blood Cells 3.87 10^6/uL (4.0-5.20); Red Cell Distribution Width 16.2 % (11.8-14.3); White Blood Cell 22.4 10^3/uL (4.4-10.8)
[2023-08-03 04:25] LABS: INR 1.08 (0.9-1.15); Partial Thromboplastin Time 26.4 SEC (24.5-34.5); Prothrombin Time 11.4 sec (9.3-11.8)
[2023-08-03 04:30] LABS: Alanine Aminotransferase 25 U/L (7-40); Albumin 2.7 g/dL (3.2-4.8); Alkaline Phosphatase 157 U/L (46-116); Anion Gap 4 (5-15); Aspartate Aminotransferase 35 U/L (13-40); Blood Urea Nitrogen 42 mg/dL (9-23); Calcium 8.4 mg/dL (8.5-10.1); Carbon Dioxide 31 mmol/L (20-30); Chloride 109 mmol/L (98-107); Glucose 149 mg/dL (74-106); Magnesium 1.9 mg/dL (1.6-2.6); Phosphorus 4.7 mg/dL (2.4-5.1); Potassium 3.7 mmol/L (3.5-5.1); Sodium 144 mmol/L (136-145)
[2023-08-03 04:31] LABS: Bilirubin, Total 0.7 mg/dL (0.2-1.0); Total Protein 5.8 g/dL (5.7-8.2)
[2023-08-03 04:38] LABS: CRP High Sensitivity > 20.00 mg/dL (<1.0)
[2023-08-03 08:57] LABS: Base Excess 0.4 mmol/L (-2.0-2.0)
[2023-08-03] MEDS: IODIXANOL 320MG/ML 100ML BTL IV ONE (09:29)
[2023-08-03] MEDS: LIDOCAINE 2%HCL (LOCAL ANESTH.) INJ 10ml MDV ONE ×2 (09:41→10:09)
[2023-08-03] MEDS: FUROSEMIDE 40 MG/4 ML VIAL IV ONE (16:18)
[2023-08-03 17:02] LABS: Hemoglobin 10.2 g/dL (12.2-16.2)
[2023-08-03 17:04] LABS: Hematocrit 32.3 % (36.0-46.0)
[2023-08-03] MEDS: TPN PER PHARMACY IV NR (20:25)
[2023-08-04] VITALS (112 sets, daily range): BP systolic 89–171; BP diastolic 40–116; PULSE 87–112; RESP 10–26; TEMP 99.5–103; O2SAT 79–100
[2023-08-04 04:41] LABS: Alanine Aminotransferase 19 U/L (7-40); Albumin 2.6 g/dL (3.2-4.8); Alkaline Phosphatase 143 U/L (46-116); Amylase 207 U/L (30-118); Anion Gap 11 (5-15); Aspartate Aminotransferase 32 U/L (13-40); Blood Urea Nitrogen 44 mg/dL (9-23); Calcium 8.6 mg/dL (8.7-10.4); Carbon Dioxide 26 mmol/L (20-30); Chloride 108 mmol/L (98-107); Glucose 149 mg/dL (74-106); Lipase 123 U/L (12-53); Magnesium 1.9 mg/dL (1.6-2.6); Potassium 4.2 mmol/L (3.5-5.1); Sodium 145 mmol/L (136-145); Total Protein 5.7 g/dL (5.7-8.2)
[2023-08-04 04:42] LABS: Bilirubin, Total 0.5 mg/dL (0.2-1.0); Eosinophils # (auto) 0.2 10 ^3/uL (0-0.8); Phosphorus 5.8 mg/dL (2.4-5.1); Red Cell Distribution Width 16.2 % (11.8-14.3)
[2023-08-04 04:45] LABS: Basophils # (auto) 0.1 10 ^3/uL (0-0.2); Basophils % (auto) 0.7 % (0.0-2.0); Eosinophils % (auto) 0.9 % (0.0-7.0); Hemoglobin 10.2 g/dL (12.2-16.2); Lymphocytes # (auto) 1.8 10 ^3/uL (0.4-5.4); Lymphocytes % (auto) 8.5 % (10.0-50.0); Mean Corpuscular Hemoglobin 26.5 pg (28.0-32.0); Mean Corpuscular Hgb Conc. 31.8 g/dL (32.0-36.0); Mean Corpuscular Volume 83.4 fL (80.0-100.0); Neutrophils % (auto) 84.9 % (37.0-80.0); Nucleated Red Blood Cells % 0.1 %; Red Blood Cells 3.83 10^6/uL (4.0-5.20); White Blood Cell 21.2 10^3/uL (4.4-10.8)
[2023-08-04 05:47] LABS: CRP High Sensitivity > 20.00 mg/dL (<1.0)
[2023-08-04] MEDS: FUROSEMIDE 40 MG/4 ML VIAL IV ONE (08:35)
[2023-08-04 09:01] LABS: Base Excess 0.8 mmol/L (-2.0-2.0)
[2023-08-04] MEDS: PIPERACILLIN-TAZOB 3.375GM 100 ML IV ONE (11:40)
[2023-08-04] MEDS: LINEZOLID 600MG/300ML 300 ML IV SCH (11:43)
[2023-08-04] MEDS: PIPERACILLIN-TAZOB 3.375GM 100 ML IV SCH (15:45)
[2023-08-04] MEDS: TPN PER PHARMACY IV NR (19:57)
[2023-08-05] VITALS (112 sets, daily range): BP systolic 83–185; BP diastolic 43–99; PULSE 81–112; RESP 13–29; TEMP 99–102.6; O2SAT 86–100
[2023-08-05 03:45] LABS: Basophils # (auto) 0.1 10 ^3/uL (0-0.2); Basophils % (auto) 0.6 % (0.0-2.0); Monocytes # (auto) 1.8 10 ^3/uL (0-1.3)
[2023-08-05 03:48] LABS: Eosinophils # (auto) 0.3 10 ^3/uL (0-0.8); Eosinophils % (auto) 1.2 % (0.0-7.0); Hematocrit 30.2 % (36.0-46.0); Hemoglobin 9.7 g/dL (12.2-16.2); Lymphocytes # (auto) 2.4 10 ^3/uL (0.4-5.4); Lymphocytes % (auto) 10.5 % (10.0-50.0); Mean Corpuscular Hemoglobin 26.8 pg (28.0-32.0); Mean Corpuscular Hgb Conc. 32.2 g/dL (32.0-36.0); Mean Corpuscular Volume 83.3 fL (80.0-100.0); Monocytes % (auto) 7.9 % (0.0-12.0); Neutrophils # (auto) 17.9 10 ^3/uL (1.6-8.6); Neutrophils % (auto) 79.8 % (37.0-80.0); Red Blood Cells 3.62 10^6/uL (4.0-5.20); Red Cell Distribution Width 15.9 % (11.8-14.3); White Blood Cell 22.4 10^3/uL (4.4-10.8)
[2023-08-05 03:58] LABS: Alanine Aminotransferase 15 U/L (7-40); Albumin 2.5 g/dL (3.2-4.8); Alkaline Phosphatase 142 U/L (46-116); Anion Gap 9 (5-15); Aspartate Aminotransferase 22 U/L (13-40); BUN/Creatinine Ratio 51.2 (10.0-20.0); Blood Urea Nitrogen 44 mg/dL (9-23); Calcium 8.7 mg/dL (8.7-10.4); Carbon Dioxide 29 mmol/L (20-30); Chloride 105 mmol/L (98-107); Glucose 133 mg/dL (74-106); Magnesium 1.8 mg/dL (1.6-2.6); Potassium 3.7 mmol/L (3.5-5.1); Sodium 143 mmol/L (136-145)
[2023-08-05 03:59] LABS: Bilirubin, Total 0.6 mg/dL (0.2-1.0); Phosphorus 4.9 mg/dL (2.4-5.1); Total Protein 5.6 g/dL (5.7-8.2)
[2023-08-05 06:30] LABS: Base Excess 1.7 mmol/L (-2.0-2.0)
[2023-08-05] MEDS: FUROSEMIDE 40 MG/4 ML VIAL IV SCH (07:33)
[2023-08-05] MEDS: FLUCONAZOLE 200MG/100ML 100 ML IV ONE (09:24)
[2023-08-05] MEDS: ENOXAPARIN SOD 40 MG/0.4 ML SYRINGE SC SCH (10:00)
[2023-08-05] MEDS: TPN PER PHARMACY IV NR (19:59)
[2023-08-06] VITALS (110 sets, daily range): BP systolic 94–151; BP diastolic 50–83; PULSE 62–103; RESP 10–24; TEMP 98.8–101.6; O2SAT 85–100
[2023-08-06 04:19] LABS: Eosinophils # (auto) 0.3 10 ^3/uL (0-0.8); Monocytes # (auto) 1.7 10 ^3/uL (0-1.3)
[2023-08-06 04:22] LABS: Basophils # (auto) 0.2 10 ^3/uL (0-0.2); Eosinophils % (auto) 1.7 % (0.0-7.0); Hematocrit 28.7 % (36.0-46.0); Hemoglobin 9.2 g/dL (12.2-16.2); Lymphocytes # (auto) 2.2 10 ^3/uL (0.4-5.4); Lymphocytes % (auto) 11.6 % (10.0-50.0); Mean Corpuscular Hemoglobin 26.6 pg (28.0-32.0); Mean Corpuscular Volume 83.2 fL (80.0-100.0); Monocytes % (auto) 8.8 % (0.0-12.0); Neutrophils # (auto) 14.7 10 ^3/uL (1.6-8.6); Neutrophils % (auto) 76.9 % (37.0-80.0); Red Blood Cells 3.44 10^6/uL (4.0-5.20); Red Cell Distribution Width 15.9 % (11.8-14.3); White Blood Cell 19.1 10^3/uL (4.4-10.8)
[2023-08-06 04:48] LABS: Alanine Aminotransferase 12 U/L (7-40); Albumin 2.6 g/dL (3.2-4.8); Alkaline Phosphatase 154 U/L (46-116); Anion Gap 6 (5-15); Aspartate Aminotransferase 23 U/L (13-40); BUN/Creatinine Ratio 47.9 (10.0-20.0); Blood Urea Nitrogen 35 mg/dL (9-23); Calcium 8.5 mg/dL (8.5-10.1); Carbon Dioxide 30 mmol/L (20-30); Chloride 104 mmol/L (98-107); Glucose 160 mg/dL (74-106); Magnesium 1.9 mg/dL (1.6-2.6); Phosphorus 4.2 mg/dL (2.4-5.1); Potassium 3.3 mmol/L (3.5-5.1); Sodium 140 mmol/L (136-145); Triglycerides 210 mg/dL (< 150)
[2023-08-06 04:49] LABS: Bilirubin, Total 0.5 mg/dL (0.2-1.0); Total Protein 5.7 g/dL (5.7-8.2)
[2023-08-06] MEDS: POTASSIUM CHL 20MEQ/100ML 100 ML IV SCH (06:44)
[2023-08-06 08:22] LABS: Base Excess 3.8 mmol/L (-2.0-2.0)
[2023-08-06] MEDS: FLUCONAZOLE 200MG/100ML 100 ML IV SCH (09:58)
[2023-08-06] MEDS ORDERED: POTASSIUM CHL 20MEQ/100ML 100 ML IV SCH (10:00)
[2023-08-06 10:43] LABS: INR 1.12 (0.9-1.15); Prothrombin Time 11.8 sec (9.3-11.8)
[2023-08-06] MEDS: LIDOCAINE 1% (LOCAL ANESTH.) PF 5ml SDV ID ONE (12:34)
[2023-08-06] MEDS: OMNIPAQUE 12mg/ml 500ml ORAL SOLUTION PO ONE (13:06)
[2023-08-06] MEDS ORDERED: TPN PER PHARMACY IV NR (20:00)
[2023-08-06 20:38] LABS: Base Excess 2.6 mmol/L (-2.0-2.0)
[2023-08-06] MEDS: SODIUM CHLOR 0.9% PF (SALINE LOCK) 10ML VIAL/SYR IV SCH (20:57)
[2023-08-06] MEDS: TPN PER PHARMACY IV NR (22:13)
[2023-08-07] VITALS (106 sets, daily range): BP systolic 90–160; BP diastolic 45–127; PULSE 82–114; RESP 9–30; TEMP 99.6–100.9; O2SAT 90–100
[2023-08-07 04:23] LABS: Basophils # (auto) 0.2 10 ^3/uL (0-0.2); Eosinophils # (auto) 0.3 10 ^3/uL (0-0.8); Hemoglobin 8.9 g/dL (12.2-16.2); White Blood Cell 14.8 10^3/uL (4.4-10.8)
[2023-08-07 04:26] LABS: Basophils % (auto) 1.1 % (0.0-2.0); Hematocrit 27.8 % (36.0-46.0); Lymphocytes # (auto) 2.2 10 ^3/uL (0.4-5.4); Lymphocytes % (auto) 14.7 % (10.0-50.0); Mean Corpuscular Hemoglobin 26.8 pg (28.0-32.0); Mean Corpuscular Hgb Conc. 32.2 g/dL (32.0-36.0); Mean Corpuscular Volume 83.2 fL (80.0-100.0); Monocytes # (auto) 1.4 10 ^3/uL (0-1.3); Monocytes % (auto) 9.6 % (0.0-12.0); Neutrophils # (auto) 10.8 10 ^3/uL (1.6-8.6); Neutrophils % (auto) 72.6 % (37.0-80.0); Nucleated Red Blood Cells % 0.1 %; Red Blood Cells 3.34 10^6/uL (4.0-5.20); Red Cell Distribution Width 15.8 % (11.8-14.3)
[2023-08-07 04:40] LABS: Alanine Aminotransferase 12 U/L (7-40); Albumin 2.7 g/dL (3.2-4.8); Alkaline Phosphatase 198 U/L (46-116); Anion Gap 8 (5-15); Aspartate Aminotransferase 23 U/L (13-40); BUN/Creatinine Ratio 47.9 (10.0-20.0); Blood Urea Nitrogen 35 mg/dL (9-23); Calcium 8.7 mg/dL (8.7-10.4); Carbon Dioxide 30 mmol/L (20-30); Chloride 103 mmol/L (98-107); Glucose 123 mg/dL (74-106); Magnesium 1.9 mg/dL (1.6-2.6); Phosphorus 4.3 mg/dL (2.4-5.1); Potassium 3.6 mmol/L (3.5-5.1); Sodium 141 mmol/L (136-145)
[2023-08-07 04:41] LABS: Bilirubin, Total 0.4 mg/dL (0.2-1.0); Total Protein 5.9 g/dL (5.7-8.2)
[2023-08-07 05:10] LABS: CRP High Sensitivity > 20.00 mg/dL (<1.0)
[2023-08-07 06:02] LABS: Anisocytosis Slight; Large Platelets FEW; Platelet Estimate Markedly Increased; Stomatocytes Few
[2023-08-07 09:39] LABS: Base Excess 2.3 mmol/L (-2.0-2.0)
[2023-08-07] MEDS: hydrALAZINE HCL 20 MG/ML VL IV PRN (13:34)
[2023-08-07] MEDS: TPN PER PHARMACY IV NR (20:41)
[2023-08-08] VITALS (91 sets, daily range): BP systolic 99–148; BP diastolic 48–89; PULSE 84–98; RESP 8–27; TEMP 99.2–100.9; O2SAT 94–100
[2023-08-08 04:39] LABS: Eosinophils # (auto) 0.2 10 ^3/uL (0-0.8); Lymphocytes # (auto) 1.8 10 ^3/uL (0.4-5.4); Monocytes # (auto) 1.1 10 ^3/uL (0-1.3); Neutrophils # (auto) 8.8 10 ^3/uL (1.6-8.6); White Blood Cell 12.1 10^3/uL (4.4-10.8)
[2023-08-08 04:43] LABS: Basophils # (auto) 0.1 10 ^3/uL (0-0.2); Basophils % (auto) 1.2 % (0.0-2.0); Eosinophils % (auto) 1.6 % (0.0-7.0); Hematocrit 27.3 % (36.0-46.0); Hemoglobin 8.8 g/dL (12.2-16.2); Lymphocytes % (auto) 15.2 % (10.0-50.0); Mean Corpuscular Hemoglobin 26.7 pg (28.0-32.0); Mean Corpuscular Hgb Conc. 32.2 g/dL (32.0-36.0); Mean Corpuscular Volume 82.9 fL (80.0-100.0); Monocytes % (auto) 9.1 % (0.0-12.0); Neutrophils % (auto) 72.9 % (37.0-80.0); Nucleated Red Blood Cells % 0.1 %; Red Cell Distribution Width 15.7 % (11.8-14.3)
[2023-08-08 05:14] LABS: Alanine Aminotransferase 13 U/L (7-40); Alkaline Phosphatase 263 U/L (46-116)
[2023-08-08 05:15] LABS: Albumin 2.8 g/dL (3.2-4.8); Anion Gap 9 (5-15); Aspartate Aminotransferase 26 U/L (13-40); BUN/Creatinine Ratio 48.6 (10.0-20.0); Bilirubin, Total 0.4 mg/dL (0.2-1.0); Blood Urea Nitrogen 34 mg/dL (9-23); Calcium 8.8 mg/dL (8.7-10.4); Carbon Dioxide 30 mmol/L (20-30); Chloride 103 mmol/L (98-107); Glucose 132 mg/dL (74-106); Phosphorus 4.5 mg/dL (2.4-5.1); Potassium 3.4 mmol/L (3.5-5.1); Sodium 142 mmol/L (136-145); Total Protein 6.1 g/dL (5.7-8.2)
[2023-08-08] MEDS: POTASSIUM CHL 20MEQ/100ML 100 ML IV SCH (06:46)
[2023-08-08 06:49] LABS: Base Excess 3.5 mmol/L (-2.0-2.0)
[2023-08-08] MEDS: TPN PER PHARMACY IV NR (21:14)
[2023-08-09] VITALS (105 sets, daily range): BP systolic 100–167; BP diastolic 53–96; PULSE 84–111; RESP 9–40; TEMP 98.8–101.6; O2SAT 88–100
[2023-08-09] MEDS: Nepro With Carb Steady 1 Liter Bottle GT SCH (03:30)
[2023-08-09 04:05] LABS: Basophils # (auto) 0.1 10 ^3/uL (0-0.2); Hemoglobin 8.9 g/dL (12.2-16.2); Mean Corpuscular Hemoglobin 26.9 pg (28.0-32.0); White Blood Cell 11.2 10^3/uL (4.4-10.8)
[2023-08-09 04:28] LABS: Alanine Aminotransferase 16 U/L (7-40); Albumin 2.9 g/dL (3.2-4.8); Alkaline Phosphatase 330 U/L (46-116); Anion Gap 5 (5-15); Aspartate Aminotransferase 35 U/L (13-40); BUN/Creatinine Ratio 46.2 (10.0-20.0); Bilirubin, Total 0.4 mg/dL (0.2-1.0); Blood Urea Nitrogen 30 mg/dL (9-23); Calcium 8.8 mg/dL (8.5-10.1); Carbon Dioxide 31 mmol/L (20-30); Chloride 105 mmol/L (98-107); Glucose 116 mg/dL (74-106); Magnesium 2.1 mg/dL (1.6-2.6); Potassium 3.6 mmol/L (3.5-5.1); Sodium 141 mmol/L (136-145); Total Protein 6.2 g/dL (5.7-8.2); Triglycerides 219 mg/dL (< 150)
[2023-08-09 04:31] LABS: Basophils % (auto) 1.1 % (0.0-2.0); Eosinophils # (auto) 0.2 10 ^3/uL (0-0.8); Eosinophils % (auto) 1.9 % (0.0-7.0); Hematocrit 27.5 % (36.0-46.0); Lymphocytes # (auto) 2.3 10 ^3/uL (0.4-5.4); Lymphocytes % (auto) 20.2 % (10.0-50.0); Mean Corpuscular Hgb Conc. 32.2 g/dL (32.0-36.0); Mean Corpuscular Volume 83.4 fL (80.0-100.0); Monocytes # (auto) 0.9 10 ^3/uL (0-1.3); Monocytes % (auto) 7.6 % (0.0-12.0); Neutrophils # (auto) 7.8 10 ^3/uL (1.6-8.6); Neutrophils % (auto) 69.2 % (37.0-80.0); Red Blood Cells 3.29 10^6/uL (4.0-5.20); Red Cell Distribution Width 15.6 % (11.8-14.3)
[2023-08-09] MEDS: POTASSIUM EFFERVESENT TAB 25 MEQ GT ONE (06:30)
[2023-08-09 07:47] LABS: Base Excess 4.8 mmol/L (-2.0-2.0)
[2023-08-09] MEDS: FUROSEMIDE 40 MG/4 ML VIAL IV SCH (09:27)
[2023-08-09] MEDS: ENOXAPARIN SOD 150 MG/1 ML SYRINGE SC ONE (15:49)
[2023-08-09 17:19] LABS: INR 1.12 (0.9-1.15); Partial Thromboplastin Time 22.4 SEC (24.5-34.5); Prothrombin Time 11.8 sec (9.3-11.8)
[2023-08-09] MEDS: PROPOFOL 100 ML IV SCH (21:30)
[2023-08-10] VITALS (112 sets, daily range): BP systolic 89–168; BP diastolic 46–85; PULSE 85–99; RESP 9–27; TEMP 98–100; O2SAT 88–100
[2023-08-10 05:37] LABS: Basophils % (auto) 1.1 % (0.0-2.0); Eosinophils # (auto) 0.2 10 ^3/uL (0-0.8); Eosinophils % (auto) 1.5 % (0.0-7.0); Lymphocytes # (auto) 2.7 10 ^3/uL (0.4-5.4)
[2023-08-10 05:39] LABS: Basophils # (auto) 0.1 10 ^3/uL (0-0.2); Hematocrit 27.7 % (36.0-46.0); Lymphocytes % (auto) 19.4 % (10.0-50.0); Mean Corpuscular Hemoglobin 26.8 pg (28.0-32.0); Mean Corpuscular Hgb Conc. 32.4 g/dL (32.0-36.0); Mean Corpuscular Volume 82.5 fL (80.0-100.0); Monocytes % (auto) 6.8 % (0.0-12.0); Neutrophils # (auto) 9.9 10 ^3/uL (1.6-8.6); Neutrophils % (auto) 71.2 % (37.0-80.0); Nucleated Red Blood Cells % 0.1 %; Red Blood Cells 3.35 10^6/uL (4.0-5.20); Red Cell Distribution Width 15.8 % (11.8-14.3); White Blood Cell 13.9 10^3/uL (4.4-10.8)
[2023-08-10 05:53] LABS: Alanine Aminotransferase 22 U/L (7-40); Alkaline Phosphatase 353 U/L (46-116); Anion Gap 5 (5-15); Aspartate Aminotransferase 46 U/L (13-40); BUN/Creatinine Ratio 33.3 (10.0-20.0); Bilirubin, Total 0.4 mg/dL (0.2-1.0); Blood Urea Nitrogen 24 mg/dL (9-23); Calcium 8.9 mg/dL (8.5-10.1); Carbon Dioxide 31 mmol/L (20-30); Chloride 107 mmol/L (98-107); Glucose 114 mg/dL (74-106); Potassium 4.2 mmol/L (3.5-5.1); Sodium 143 mmol/L (136-145); Total Protein 6.4 g/dL (5.7-8.2)
[2023-08-10] MEDS ORDERED: ENOXAPARIN SOD 150 MG/1 ML SYRINGE SC SCH (06:00)
[2023-08-10 06:02] LABS: CRP High Sensitivity > 20.00 mg/dL (<1.0)
[2023-08-10 08:11] LABS: Base Excess 4.5 mmol/L (-2.0-2.0)
[2023-08-10 08:11] LABS: Platelet Estimate Markedly Increased
[2023-08-10] MEDS: ENOXAPARIN SOD 40 MG/0.4 ML SYRINGE SC SCH (09:19)
[2023-08-10 09:21] LABS: Lipase 147 U/L (12-53)
[2023-08-10 09:22] LABS: Amylase 200 U/L (30-118)
[2023-08-10] MEDS ORDERED: ENOXAPARIN SOD 40 MG/0.4 ML SYRINGE SC SCH (10:00)
[2023-08-10 10:20] LABS: INR 1.11 (0.9-1.15); Partial Thromboplastin Time 26.6 SEC (24.5-34.5); Prothrombin Time 11.7 sec (9.3-11.8)
[2023-08-10] MEDS: fentaNYL Drip 2500mCg/250mlNS 250 ML IV SCH (10:45)
[2023-08-10] MEDS: FLUCONAZOLE 200MG/100ML 100 ML IV ONE (11:39)
[2023-08-11] VITALS (107 sets, daily range): BP systolic 92–154; BP diastolic 32–75; PULSE 85–134; RESP 8–32; TEMP 98.2–100.4; O2SAT 89–100
[2023-08-11 04:34] LABS: Basophils # (auto) 0.1 10 ^3/uL (0-0.2); Eosinophils # (auto) 0.3 10 ^3/uL (0-0.8); Hemoglobin 8.3 g/dL (12.2-16.2); Lymphocytes # (auto) 1.7 10 ^3/uL (0.4-5.4); Mean Corpuscular Hgb Conc. 31.2 g/dL (32.0-36.0); Monocytes # (auto) 0.9 10 ^3/uL (0-1.3); Red Blood Cells 3.17 10^6/uL (4.0-5.20)
[2023-08-11 04:35] LABS: Basophils % (auto) 1.2 % (0.0-2.0); Eosinophils % (auto) 2.2 % (0.0-7.0); Hematocrit 26.5 % (36.0-46.0); Lymphocytes % (auto) 14.7 % (10.0-50.0); Mean Corpuscular Hemoglobin 26.1 pg (28.0-32.0); Mean Corpuscular Volume 83.7 fL (80.0-100.0); Monocytes % (auto) 7.3 % (0.0-12.0); Neutrophils # (auto) 8.8 10 ^3/uL (1.6-8.6); Neutrophils % (auto) 74.6 % (37.0-80.0); Nucleated Red Blood Cells % 0.5 %; Red Cell Distribution Width 15.7 % (11.8-14.3); White Blood Cell 11.8 10^3/uL (4.4-10.8)
[2023-08-11 04:54] LABS: Alanine Aminotransferase 15 U/L (7-40); Albumin 2.7 g/dL (3.2-4.8); Alkaline Phosphatase 249 U/L (46-116); Anion Gap 8 (5-15); Aspartate Aminotransferase 29 U/L (13-40); BUN/Creatinine Ratio 21.3 (10.0-20.0); Bilirubin, Total 0.4 mg/dL (0.2-1.0); Blood Urea Nitrogen 16 mg/dL (9-23); Calcium 8.4 mg/dL (8.7-10.4); Carbon Dioxide 29 mmol/L (20-30); Chloride 103 mmol/L (98-107); Glucose 335 mg/dL (74-106); Magnesium 1.9 mg/dL (1.6-2.6); Potassium 3.3 mmol/L (3.5-5.1); Sodium 140 mmol/L (136-145)
[2023-08-11 04:55] LABS: Total Protein 6.1 g/dL (5.7-8.2)
[2023-08-11] MEDS: POTASSIUM EFFERVESENT TAB 25 MEQ GT ONE (06:45)
[2023-08-11 08:06] LABS: Base Excess 3.7 mmol/L (-2.0-2.0)
[2023-08-11] MEDS: FUROSEMIDE 40 MG/4 ML VIAL IV ONE (09:54)
[2023-08-11] MEDS: FLUCONAZOLE 200MG/100ML 100 ML IV SCH (09:55)
[2023-08-12] VITALS (107 sets, daily range): BP systolic 91–156; BP diastolic 41–95; PULSE 80–105; RESP 12–36; TEMP 98.4–101.2; O2SAT 91–100
[2023-08-12 04:00] LABS: Lymphocytes # (auto) 1.8 10 ^3/uL (0.4-5.4); Mean Corpuscular Hgb Conc. 32.7 g/dL (32.0-36.0); Monocytes # (auto) 1.1 10 ^3/uL (0-1.3)
[2023-08-12 04:07] LABS: Basophils # (auto) 0.2 10 ^3/uL (0-0.2); Basophils % (auto) 1.6 % (0.0-2.0); Eosinophils # (auto) 0.1 10 ^3/uL (0-0.8); Eosinophils % (auto) 0.9 % (0.0-7.0); Hematocrit 28.2 % (36.0-46.0); Hemoglobin 9.2 g/dL (12.2-16.2); Lymphocytes % (auto) 11.7 % (10.0-50.0); Mean Corpuscular Hemoglobin 26.7 pg (28.0-32.0); Mean Corpuscular Volume 81.5 fL (80.0-100.0); Monocytes % (auto) 6.9 % (0.0-12.0); Neutrophils # (auto) 12.3 10 ^3/uL (1.6-8.6); Neutrophils % (auto) 78.9 % (37.0-80.0); Nucleated Red Blood Cells % 0.6 %; Red Blood Cells 3.46 10^6/uL (4.0-5.20); Red Cell Distribution Width 15.3 % (11.8-14.3); White Blood Cell 15.7 10^3/uL (4.4-10.8)
[2023-08-12 04:13] LABS: Alanine Aminotransferase 19 U/L (7-40); Alkaline Phosphatase 262 U/L (46-116); Anion Gap 8 (5-15); Aspartate Aminotransferase 26 U/L (13-40); BUN/Creatinine Ratio 15.8 (10.0-20.0); Blood Urea Nitrogen 15 mg/dL (9-23); Calcium 8.9 mg/dL (8.5-10.1); Carbon Dioxide 32 mmol/L (20-30); Chloride 107 mmol/L (98-107); Glucose 127 mg/dL (74-106); Magnesium 1.9 mg/dL (1.6-2.6); Potassium 3.6 mmol/L (3.5-5.1)
[2023-08-12 04:14] LABS: Albumin 3.1 g/dL (3.2-4.8); Bilirubin, Total 0.5 mg/dL (0.2-1.0); Sodium 147 mmol/L (136-145); Total Protein 6.7 g/dL (5.7-8.2)
[2023-08-12 07:05] LABS: Base Excess 5.1 mmol/L (-2.0-2.0)
[2023-08-12] MEDS: FREE WATER NG SCH (17:19)
[2023-08-13] VITALS (104 sets, daily range): BP systolic 84–170; BP diastolic 50–108; PULSE 81–109; RESP 10–32; TEMP 98.6–100.2; O2SAT 87–100
[2023-08-13 03:55] LABS: Anion Gap 8 (5-15); Carbon Dioxide 30 mmol/L (20-30); Chloride 107 mmol/L (98-107); Potassium 2.8 mmol/L (3.5-5.1); Sodium 145 mmol/L (136-145)
[2023-08-13 03:56] LABS: Calcium 8.2 mg/dL (8.7-10.4)
[2023-08-13 04:01] LABS: BUN/Creatinine Ratio 17.2 (10.0-20.0); Blood Urea Nitrogen 17 mg/dL (9-23); Glucose 211 mg/dL (74-106)
[2023-08-13 04:04] LABS: Basophils # (auto) 0.1 10 ^3/uL (0-0.2); Basophils % (auto) 0.6 % (0.0-2.0); Nucleated Red Blood Cells % 0.4 %; Red Blood Cells 3.09 10^6/uL (4.0-5.20); White Blood Cell 13.2 10^3/uL (4.4-10.8)
[2023-08-13 04:06] LABS: Eosinophils # (auto) 0.3 10 ^3/uL (0-0.8); Hematocrit 25.2 % (36.0-46.0); Hemoglobin 8.2 g/dL (12.2-16.2); Lymphocytes # (auto) 1.8 10 ^3/uL (0.4-5.4); Lymphocytes % (auto) 13.8 % (10.0-50.0); Mean Corpuscular Hemoglobin 26.4 pg (28.0-32.0); Mean Corpuscular Hgb Conc. 32.4 g/dL (32.0-36.0); Mean Corpuscular Volume 81.5 fL (80.0-100.0); Monocytes # (auto) 0.9 10 ^3/uL (0-1.3); Monocytes % (auto) 6.9 % (0.0-12.0); Neutrophils # (auto) 10.1 10 ^3/uL (1.6-8.6); Neutrophils % (auto) 76.7 % (37.0-80.0); Red Cell Distribution Width 15.2 % (11.8-14.3)
[2023-08-13] MEDS: POTASSIUM EFFERVESENT TAB 25 MEQ GT ONE (06:30)
[2023-08-13] MEDS ORDERED: POTASSIUM CHL 20MEQ/100ML 100 ML IV SCH (06:30)
[2023-08-13] MEDS: POTASSIUM CHL 20MEQ/100ML 100 ML IV SCH ×2 (06:33→19:58)
[2023-08-13 07:52] LABS: Magnesium 1.7 mg/dL (1.6-2.6)
[2023-08-13 07:53] LABS: Bilirubin, Direct 0.2 mg/dL (<0.3)
[2023-08-13 07:54] LABS: Bilirubin, Total 0.3 mg/dL (0.2-1.0); Total Protein 6.2 g/dL (5.7-8.2)
[2023-08-13 08:23] LABS: Base Excess 6.8 mmol/L (-2.0-2.0)
[2023-08-13] MEDS: MAGNESIUM SULFATE 1GM/100ML 100 ML IV SCH (08:57)
[2023-08-13] MEDS: FUROSEMIDE 40 MG/4 ML VIAL IV ONE (10:21)
[2023-08-13] MEDS: acetaZOLAMIDE SODIUM 500 MG VL IV ONE (11:23)
[2023-08-13] MEDS ORDERED: POTASSIUM CHLORIDE 60 MEQ, LIDOCAINE 1% (LOCAL ANESTH.) 6 ML in SODIUM CHL 0.9% 500 ML IV ONE (15:45)
[2023-08-13] MEDS: MEROPENEM 1GM IVPB 50 ML IV SCH (22:16)
[2023-08-14] VITALS (68 sets, daily range): BP systolic 109–187; BP diastolic 66–124; PULSE 93–109; RESP 11–35; TEMP 98.8–101.1; O2SAT 90–98
[2023-08-14 07:30] LABS: Alanine Aminotransferase 17 U/L (7-40); Albumin 3.6 g/dL (3.2-4.8); Alkaline Phosphatase 265 U/L (46-116); Anion Gap 9 (5-15); Aspartate Aminotransferase 37 U/L (13-40); BUN/Creatinine Ratio 12.7 (10.0-20.0); Blood Urea Nitrogen 13 mg/dL (9-23); Calcium 9.2 mg/dL (8.5-10.1); Carbon Dioxide 28 mmol/L (20-30); Chloride 109 mmol/L (98-107); Glucose 109 mg/dL (74-106); Magnesium 2.5 mg/dL (1.6-2.6); Potassium 3.3 mmol/L (3.5-5.1); Sodium 146 mmol/L (136-145)
[2023-08-14 07:31] LABS: Bilirubin, Total 0.3 mg/dL (0.2-1.0); Total Protein 7.5 g/dL (5.7-8.2)
[2023-08-14 07:39] LABS: CRP High Sensitivity > 20.00 mg/dL (<1.0)
[2023-08-14] MEDS: LISINOPRIL 20 MG TAB NG ONE ×2 (08:30→09:22)
[2023-08-14] MEDS: POTASSIUM EFFERVESENT TAB 25 MEQ PO ONE (09:21)
[2023-08-14] MEDS: POTASSIUM CHL 20MEQ/100ML 100 ML IV ONE (09:21)
[2023-08-14 09:23] LABS: Basophils # (auto) 0.1 10 ^3/uL (0-0.2); Monocytes # (auto) 1.2 10 ^3/uL (0-1.3)
[2023-08-14 09:26] LABS: Basophils % (auto) 0.9 % (0.0-2.0); Eosinophils # (auto) 0.1 10 ^3/uL (0-0.8); Eosinophils % (auto) 0.9 % (0.0-7.0); Hemoglobin 9.6 g/dL (12.2-16.2); Lymphocytes % (auto) 13.8 % (10.0-50.0); Mean Corpuscular Hemoglobin 26.8 pg (28.0-32.0); Mean Corpuscular Hgb Conc. 31.9 g/dL (32.0-36.0); Mean Corpuscular Volume 83.9 fL (80.0-100.0); Monocytes % (auto) 8.6 % (0.0-12.0); Neutrophils % (auto) 75.8 % (37.0-80.0); Nucleated Red Blood Cells % 0.8 %; Red Blood Cells 3.58 10^6/uL (4.0-5.20); Red Cell Distribution Width 16.1 % (11.8-14.3); White Blood Cell 14.5 10^3/uL (4.4-10.8)
[2023-08-14] MEDS ORDERED: hydroxyUREA 500 MG CAP PO SCH (10:00)
[2023-08-14 17:01] LABS: Urine Bacteria None Seen /hpf (None Seen)
[2023-08-14 17:14] LABS: Urine Blood 2+ /uL (Negative); Urine Budding Yeast MANY /hpf (None Seen); Urine Clarity Ex.Turbid (Clear); Urine Color Yellow (Yellow); Urine Hyaline Cast FEW /lpf (0 - 2); Urine Mucus FEW (None Seen); Urine Protein, UAD 2+ (Negative); Urine Specific Gravity 1.024 (1.001-1.035); Urine Urobilinogen 2 mg/dL (Negative); Urine WBC 28 /hpf (0 - 5); Urine WBC Clumps PRESENT /hpf (None Seen); Urine pH 5.5 (5.0-9.0)
[2023-08-14] MEDS: hydroxyUREA 500 MG CAP PO SCH (21:45)
[2023-08-15] VITALS (32 sets, daily range): BP systolic 90–152; BP diastolic 33–79; PULSE 75–106; RESP 10–38; TEMP 98.6–102.5; O2SAT 91–99
[2023-08-15 05:11] LABS: Basophils # (auto) 0.1 10 ^3/uL (0-0.2); Basophils % (auto) 0.8 % (0.0-2.0); Neutrophils # (auto) 11.4 10 ^3/uL (1.6-8.6)
[2023-08-15 05:13] LABS: Eosinophils # (auto) 0.1 10 ^3/uL (0-0.8); Eosinophils % (auto) 0.8 % (0.0-7.0); Hematocrit 31.7 % (36.0-46.0); Lymphocytes # (auto) 2.6 10 ^3/uL (0.4-5.4); Lymphocytes % (auto) 16.4 % (10.0-50.0); Mean Corpuscular Hemoglobin 25.9 pg (28.0-32.0); Mean Corpuscular Hgb Conc. 31.5 g/dL (32.0-36.0); Monocytes # (auto) 1.4 10 ^3/uL (0-1.3); Monocytes % (auto) 8.8 % (0.0-12.0); Neutrophils % (auto) 73.2 % (37.0-80.0); Nucleated Red Blood Cells % 0.8 %; Red Blood Cells 3.87 10^6/uL (4.0-5.20); Red Cell Distribution Width 15.8 % (11.8-14.3); White Blood Cell 15.6 10^3/uL (4.4-10.8)
[2023-08-15 05:32] LABS: Alanine Aminotransferase 14 U/L (7-40); Albumin 3.4 g/dL (3.2-4.8); Alkaline Phosphatase 255 U/L (46-116); Anion Gap 11 (5-15); Aspartate Aminotransferase 38 U/L (13-40); BUN/Creatinine Ratio 16.7 (10.0-20.0); Calcium 8.8 mg/dL (8.5-10.1); Carbon Dioxide 28 mmol/L (20-30); Chloride 112 mmol/L (98-107); Glucose 123 mg/dL (74-106); Magnesium 2.3 mg/dL (1.6-2.6); Potassium 3.3 mmol/L (3.5-5.1)
[2023-08-15 05:33] LABS: Bilirubin, Total 0.3 mg/dL (0.2-1.0); Blood Urea Nitrogen 25 mg/dL (9-23); Sodium 151 mmol/L (136-145); Total Protein 6.9 g/dL (5.7-8.2)
[2023-08-15] MEDS: POTASSIUM EFFERVESENT TAB 25 MEQ PO ONE (06:40)
[2023-08-15] MEDS: FREE WATER GT SCH (08:30)
[2023-08-15] MEDS ORDERED: FREE WATER GT SCH (08:30)
[2023-08-15] MEDS ORDERED: LISINOPRIL 20 MG TAB PO SCH (10:00)
[2023-08-15 10:36] LABS: Base Excess 2.7 mmol/L (-2.0-2.0)
[2023-08-15] MEDS: POTASSIUM CHLORIDE 20 MEQ in D5W 5% 1,000 ML IV SCH (11:49)
[2023-08-15] MEDS ORDERED: metroNIDAZOLE 500MG/100ML 100 ML IV SCH (17:30)
[2023-08-15 17:38] LABS: Chloride 109 mmol/L (98-107); Sodium 140 mmol/L (136-145)
[2023-08-15 17:39] LABS: Anion Gap 7 (5-15); Carbon Dioxide 24 mmol/L (20-30)
[2023-08-15 17:40] LABS: Calcium 8.1 mg/dL (8.5-10.1)
[2023-08-15 17:44] LABS: BUN/Creatinine Ratio 11.6 (10.0-20.0); Blood Urea Nitrogen 23 mg/dL (9-23); Glucose 314 mg/dL (74-106)
[2023-08-15 17:58] LABS: Potassium 5.6 mmol/L (3.5-5.1)
[2023-08-15 19:55] LABS: Chloride 111 mmol/L (98-107); Potassium 4.2 mmol/L (3.5-5.1)
[2023-08-15 19:56] LABS: Anion Gap 9 (5-15); Calcium 8.7 mg/dL (8.5-10.1); Carbon Dioxide 28 mmol/L (20-30)
[2023-08-15 20:01] LABS: BUN/Creatinine Ratio 14.9 (10.0-20.0); Glucose 124 mg/dL (74-106)
[2023-08-15 20:04] LABS: Blood Urea Nitrogen 34 mg/dL (9-23); Sodium 148 mmol/L (136-145)
[2023-08-15] MEDS ORDERED: D5W 5% 1,000 ML IV SCH (20:45)
[2023-08-15] MEDS: metroNIDAZOLE 500 MG TAB PO SCH (22:29)
[2023-08-16] VITALS (53 sets, daily range): BP systolic 80–126; BP diastolic 32–72; PULSE 89–104; RESP 18–35; TEMP 98.4–101.3; O2SAT 90–100
[2023-08-16 06:15] LABS: Eosinophils # (auto) 0.2 10 ^3/uL (0-0.8); Hemoglobin 10.3 g/dL (12.2-16.2); Monocytes # (auto) 1.2 10 ^3/uL (0-1.3)
[2023-08-16 06:20] LABS: Basophils # (auto) 0.1 10 ^3/uL (0-0.2); Basophils % (auto) 0.7 % (0.0-2.0); Eosinophils % (auto) 1.1 % (0.0-7.0); Hematocrit 33.9 % (36.0-46.0); Lymphocytes # (auto) 3.7 10 ^3/uL (0.4-5.4); Lymphocytes % (auto) 18.2 % (10.0-50.0); Mean Corpuscular Hemoglobin 25.4 pg (28.0-32.0); Mean Corpuscular Hgb Conc. 30.3 g/dL (32.0-36.0); Monocytes % (auto) 5.9 % (0.0-12.0); Neutrophils # (auto) 14.9 10 ^3/uL (1.6-8.6); Neutrophils % (auto) 74.1 % (37.0-80.0); Nucleated Red Blood Cells % 0.4 %; Red Blood Cells 4.04 10^6/uL (4.0-5.20); Red Cell Distribution Width 15.9 % (11.8-14.3); White Blood Cell 20.1 10^3/uL (4.4-10.8)
[2023-08-16 06:25] LABS: INR 1.4 (0.9-1.15); Partial Thromboplastin Time 21.2 SEC (24.5-34.5); Prothrombin Time 14.5 sec (9.3-11.8)
[2023-08-16 06:30] LABS: Alanine Aminotransferase 15 U/L (7-40); Albumin 3.4 g/dL (3.2-4.8); Alkaline Phosphatase 243 U/L (46-116); Anion Gap 10 (5-15); Aspartate Aminotransferase 46 U/L (13-40); BUN/Creatinine Ratio 13.9 (10.0-20.0); Blood Urea Nitrogen 42 mg/dL (9-23); Carbon Dioxide 27 mmol/L (20-30); Chloride 109 mmol/L (98-107); Creatine Kinase IFCC 39 U/L (34-145); Glucose 101 mg/dL (74-106); Magnesium 2.3 mg/dL (1.6-2.6); Potassium 3.7 mmol/L (3.5-5.1); Sodium 146 mmol/L (136-145)
[2023-08-16 06:31] LABS: Bilirubin, Total 0.4 mg/dL (0.2-1.0); Phosphorus 5.7 mg/dL (2.4-5.1); Total Protein 7.1 g/dL (5.7-8.2)
[2023-08-16 06:42] LABS: Lactic Acid w/Reflex 2.6 mmol/L (0.4-2.0)
[2023-08-16] MEDS: BUMETANIDE 2.5mg/10ml (0.25 mg/ml) INJ IV ONE ×2 (06:57→19:05)
[2023-08-16 07:32] LABS: Amylase 768 U/L (30-118)
[2023-08-16 07:39] LABS: Lipase 1318 U/L (12-53)
[2023-08-16 08:30] LABS: Base Excess -0.2 mmol/L (-2.0-2.0)
[2023-08-16] MEDS: SODIUM CHLORIDE 0.9% 500 ML IV ONE (09:15)
[2023-08-16] MEDS: LINEZOLID 600MG/300ML 300 ML IV SCH (11:04)
[2023-08-16] MEDS: NOREPINEPHRINE 8 MG/250ML KIT 250 ML IV SCH (16:46)
[2023-08-16] MEDS: FUROSEMIDE 100 MG/10ML VIAL IV ONE (20:01)
[2023-08-17] VITALS (96 sets, daily range): BP systolic 80–139; BP diastolic 28–115; PULSE 82–101; RESP 10–26; TEMP 99–100.3; O2SAT 60–100
[2023-08-17 04:55] LABS: Alanine Aminotransferase 21 U/L (7-40); Albumin 3.4 g/dL (3.2-4.8); Alkaline Phosphatase 213 U/L (46-116); Anion Gap 14 (5-15); Aspartate Aminotransferase 99 U/L (13-40); BUN/Creatinine Ratio 10.3 (10.0-20.0); Blood Urea Nitrogen 46 mg/dL (9-23); Calcium 8.9 mg/dL (8.7-10.4); Carbon Dioxide 23 mmol/L (20-30); Chloride 111 mmol/L (98-107); Creatine Kinase IFCC 98 U/L (34-145); Glucose 114 mg/dL (74-106); Magnesium 2.3 mg/dL (1.6-2.6); Potassium 4.4 mmol/L (3.5-5.1); Sodium 148 mmol/L (136-145)
[2023-08-17 04:56] LABS: Bilirubin, Total 0.3 mg/dL (0.2-1.0); Lymphocytes # (auto) 3.7 10 ^3/uL (0.4-5.4); Lymphocytes % (auto) 17.4 % (10.0-50.0); Mean Corpuscular Hemoglobin 26.4 pg (28.0-32.0); Mean Corpuscular Hgb Conc. 29.4 g/dL (32.0-36.0); Mean Corpuscular Volume 89.7 fL (80.0-100.0); Nucleated Red Blood Cells % 0.7 %; Total Protein 7.1 g/dL (5.7-8.2)
[2023-08-17 05:01] LABS: Basophils # (auto) 0.1 10 ^3/uL (0-0.2); Basophils % (auto) 0.6 % (0.0-2.0); Eosinophils # (auto) 0.4 10 ^3/uL (0-0.8); Eosinophils % (auto) 1.9 % (0.0-7.0); Hematocrit 37.1 % (36.0-46.0); Hemoglobin 10.9 g/dL (12.2-16.2); Monocytes # (auto) 2.4 10 ^3/uL (0-1.3); Monocytes % (auto) 11.2 % (0.0-12.0); Neutrophils # (auto) 14.6 10 ^3/uL (1.6-8.6); Neutrophils % (auto) 68.9 % (37.0-80.0); Red Blood Cells 4.14 10^6/uL (4.0-5.20); Red Cell Distribution Width 17.5 % (11.8-14.3); White Blood Cell 21.2 10^3/uL (4.4-10.8)
[2023-08-17 05:05] LABS: Lipase 1301 U/L (12-53)
[2023-08-17 06:20] LABS: Lactic Acid w/Reflex 3.2 mmol/L (0.4-2.0)
[2023-08-17] MEDS: LOPERAMIDE HCL 2 MG CAP/TAB PO PRN (17:50)
[2023-08-17] MEDS: SODIUM CHLORIDE 0.9% 1,000 ML IV SCH (17:50)
[2023-08-17] MEDS: hydroxyUREA 500 MG CAP PO SCH (21:00)
[2023-08-17] MEDS ORDERED: MEROPENEM 1GM IVPB 50 ML IV SCH (22:00)
[2023-08-17] MEDS: MEROPENEM 500MG IVPB 50 ML IV SCH (22:34)
[2023-08-18] VITALS (99 sets, daily range): BP systolic 78–124; BP diastolic 46–94; PULSE 88–111; RESP 11–29; TEMP 98.6–101.8; O2SAT 44–98
[2023-08-18 07:19] LABS: Basophils # (auto) 0.2 10 ^3/uL (0-0.2); Eosinophils # (auto) 0.4 10 ^3/uL (0-0.8); Eosinophils % (auto) 2.7 % (0.0-7.0); Hematocrit 31.2 % (36.0-46.0); Hemoglobin 9.5 g/dL (12.2-16.2); Lymphocytes # (auto) 2.7 10 ^3/uL (0.4-5.4); Lymphocytes % (auto) 16.6 % (10.0-50.0); Mean Corpuscular Hemoglobin 25.4 pg (28.0-32.0); Mean Corpuscular Hgb Conc. 30.3 g/dL (32.0-36.0); Mean Corpuscular Volume 83.7 fL (80.0-100.0); Monocytes # (auto) 1.7 10 ^3/uL (0-1.3); Monocytes % (auto) 10.4 % (0.0-12.0); Neutrophils # (auto) 11.2 10 ^3/uL (1.6-8.6); Neutrophils % (auto) 69.3 % (37.0-80.0); Nucleated Red Blood Cells % 0.9 %; Red Blood Cells 3.73 10^6/uL (4.0-5.20); Red Cell Distribution Width 16.6 % (11.8-14.3); White Blood Cell 16.2 10^3/uL (4.4-10.8)
[2023-08-18 09:57] LABS: Alanine Aminotransferase 21 U/L (7-40); Albumin 3.1 g/dL (3.2-4.8); Alkaline Phosphatase 165 U/L (46-116); Anion Gap 13 (5-15); Aspartate Aminotransferase 53 U/L (13-40); BUN/Creatinine Ratio 15.2 (10.0-20.0); Bilirubin, Total 0.3 mg/dL (0.2-1.0); Blood Urea Nitrogen 64 mg/dL (9-23); Calcium 8.4 mg/dL (8.5-10.1); Carbon Dioxide 22 mmol/L (20-30); Chloride 114 mmol/L (98-107); Creatine Kinase IFCC 143 U/L (34-145); Glucose 112 mg/dL (74-106); Magnesium 1.9 mg/dL (1.6-2.6); Potassium 3.4 mmol/L (3.5-5.1); Sodium 149 mmol/L (136-145); Total Protein 6.1 g/dL (5.7-8.2)
[2023-08-18] MEDS ORDERED: FLUCONAZOLE 200MG/100ML 100 ML IV SCH (10:00)
[2023-08-18] MEDS: POTASSIUM EFFERVESENT TAB 25 MEQ PO ONE (12:37)
[2023-08-18 14:55] LABS: Urine Bacteria FEW /hpf (None Seen); Urine Blood 2+ /uL (Negative); Urine Clarity Ex.Turbid (Clear); Urine Color Light-Orange (Yellow); Urine Mucus FEW (None Seen); Urine Protein, UAD 2+ (Negative); Urine Specific Gravity 1.025 (1.001-1.035); Urine Urobilinogen 3 mg/dL (Negative); Urine WBC 34 /hpf (0 - 5); Urine pH 5.5 (5.0-9.0)
[2023-08-18] MEDS: SODIUM CHLORIDE 0.9% 1,000 ML IV SCH (15:01)
[2023-08-18 15:12] LABS: Creatinine, Urine 167.55 mg/dL (30.0-125.0)
[2023-08-18] MEDS: MELATONIN 5 MG TAB PO SCH (22:20)
[2023-08-19] VITALS (95 sets, daily range): BP systolic 50–120; BP diastolic 32–83; PULSE 4–105; RESP 11–31; TEMP 98.9–100.4; O2SAT 84–100
[2023-08-19] MEDS: ZOLPIDEM TARTRATE 5 MG TAB PO ONE (01:49)
[2023-08-19 03:58] LABS: Red Cell Distribution Width 16.4 % (11.8-14.3)
[2023-08-19 04:00] LABS: Hematocrit 27.4 % (36.0-46.0); Hemoglobin 8.6 g/dL (12.2-16.2); Mean Corpuscular Hgb Conc. 31.5 g/dL (32.0-36.0); Mean Corpuscular Volume 82.8 fL (80.0-100.0); Red Blood Cells 3.31 10^6/uL (4.0-5.20)
[2023-08-19 04:09] LABS: Basophils % (manual) 0 (0.0-2.0); Blast Cells 0; Metamyelocytes % 0; Promyelocytes % 0; Reactive Lymphocytes 0
[2023-08-19 04:33] LABS: Alanine Aminotransferase 14 U/L (7-40); Albumin 2.7 g/dL (3.2-4.8); Alkaline Phosphatase 124 U/L (46-116); Aspartate Aminotransferase 50 U/L (13-40); BUN/Creatinine Ratio 17.5 (10.0-20.0); Blood Urea Nitrogen 60 mg/dL (9-23); Calcium 8.1 mg/dL (8.7-10.4); Chloride 114 mmol/L (98-107); Glucose 144 mg/dL (74-106); Lipase 422 U/L (12-53); Magnesium 1.6 mg/dL (1.6-2.6); Potassium 3.4 mmol/L (3.5-5.1); Sodium 146 mmol/L (136-145)
[2023-08-19 04:34] LABS: Bilirubin, Total 0.3 mg/dL (0.2-1.0); Total Protein 5.5 g/dL (5.7-8.2)
[2023-08-19 05:08] LABS: Anion Gap 13 (5-15); Carbon Dioxide 19 mmol/L (20-30)
[2023-08-19 06:29] LABS: Anisocytosis Slight; Band Neutrophils % (manual) 10; Eosinophils % (manual) 4 (0-7); Lymphocytes % (manual) 16 (10.0-50.0); Macrocytosis Slight; Monocytes % (manual) 8 (0-12); Myelocytes % 1; Platelet Estimate Adequate; Polychromasia Slight
[2023-08-19] MEDS: POTASSIUM CHL 20MEQ/100ML 100 ML IV SCH (08:12)
[2023-08-19] MEDS: POTASSIUM CHL 20MEQ/100ML 100 ML IV ONE (08:45)
[2023-08-19] MEDS: ENOXAPARIN SOD 30 MG/0.3 ML SYRINGE SC SCH (10:38)
[2023-08-19] MEDS: SODIUM CHLORIDE 0.9% 1,000 ML IV ONE ×2 (14:00)
[2023-08-19] MEDS: HYDROcodone-ACET 5/325MG TAB PO PRN (18:09)
[2023-08-19] MEDS: traZODone HCL 50 MG TAB PO ONE (21:23)
[2023-08-20] VITALS (86 sets, daily range): BP systolic 73–132; BP diastolic 32–93; PULSE 80–155; RESP 15–39; TEMP 97.7–99.2; O2SAT 90–99
[2023-08-20 03:42] LABS: Basophils # (auto) 0 10 ^3/uL (0-0.2); Basophils % (auto) 0.5 % (0.0-2.0); Eosinophils # (auto) 0 10 ^3/uL (0-0.8); Eosinophils % (auto) 0.3 % (0.0-7.0); Hemoglobin 8.4 g/dL (12.2-16.2); Lymphocytes # (auto) 1.6 10 ^3/uL (0.4-5.4); Lymphocytes % (auto) 18.4 % (10.0-50.0); Mean Corpuscular Hemoglobin 25.8 pg (28.0-32.0); Mean Corpuscular Hgb Conc. 31.2 g/dL (32.0-36.0); Mean Corpuscular Volume 82.7 fL (80.0-100.0); Monocytes # (auto) 1.2 10 ^3/uL (0-1.3); Monocytes % (auto) 13.3 % (0.0-12.0); Neutrophils # (auto) 5.9 10 ^3/uL (1.6-8.6); Neutrophils % (auto) 67.5 % (37.0-80.0); Nucleated Red Blood Cells % 1.1 %; Red Blood Cells 3.27 10^6/uL (4.0-5.20); Red Cell Distribution Width 16.4 % (11.8-14.3); White Blood Cell 8.7 10^3/uL (4.4-10.8)
[2023-08-20 03:59] LABS: Alanine Aminotransferase 10 U/L (7-40); Alkaline Phosphatase 116 U/L (46-116); Anion Gap 11 (5-15); Aspartate Aminotransferase 27 U/L (13-40); BUN/Creatinine Ratio 22.1 (10.0-20.0); Blood Urea Nitrogen 55 mg/dL (9-23); Calcium 7.9 mg/dL (8.5-10.1); Carbon Dioxide 18 mmol/L (20-30); Chloride 117 mmol/L (98-107); Glucose 119 mg/dL (74-106); Magnesium 1.5 mg/dL (1.6-2.6); Potassium 3.7 mmol/L (3.5-5.1); Sodium 146 mmol/L (136-145)
[2023-08-20 04:00] LABS: Albumin 2.6 g/dL (3.2-4.8)
[2023-08-20 04:01] LABS: Bilirubin, Total 0.3 mg/dL (0.2-1.0); Phosphorus 5.3 mg/dL (2.4-5.1); Total Protein 5.2 g/dL (5.7-8.2)
[2023-08-20] MEDS: POTASSIUM CHL 20MEQ/100ML 100 ML IV ONE (06:28)
[2023-08-20] MEDS: SODIUM CHLORIDE 0.9% 1,000 ML IV SCH (06:39)
[2023-08-20] MEDS: MAGNESIUM SULFATE 1GM/100ML 100 ML IV SCH (07:04)
[2023-08-20 13:15] LABS: Urine Amorphous Crystal FEW /hpf (None Seen); Urine Bacteria FEW /hpf (None Seen); Urine Budding Yeast FEW /hpf (None Seen); Urine Hyaline Cast FEW /lpf (0 - 2); Urine WBC 15 /hpf (0 - 5)
[2023-08-20 13:18] LABS: Urine Clarity Hazy (Clear); Urine Color Yellow (Yellow); Urine Specific Gravity 1.015 (1.001-1.035)
[2023-08-20 13:19] LABS: Urine Protein, UAD Negative (Negative); Urine Urobilinogen Normal (Negative)
[2023-08-20 13:20] LABS: Urine Blood Trace /uL (Negative)
[2023-08-20] MEDS: MAGNESIUM SULFATE 1GM/100ML 100 ML IV ONE (14:41)
[2023-08-20] MEDS: DOPamine 1600MCG/ML D5W 250 ML IV SCH (15:22)
[2023-08-20] MEDS: SODIUM BICARB 50mEq/50ml Vial 50 ML in D5W 5% 1,000 ML IV SCH (15:22)
[2023-08-20] MEDS: Nepro With Carbsteady ButterPecan 8oz Carton PO SCH (18:00)
[2023-08-20 19:30] LABS: Anion Gap 11 (5-15); Carbon Dioxide 17 mmol/L (20-30); Chloride 115 mmol/L (98-107); Potassium 3.8 mmol/L (3.5-5.1); Sodium 143 mmol/L (136-145)
[2023-08-20 19:36] LABS: BUN/Creatinine Ratio 24.4 (10.0-20.0); Blood Urea Nitrogen 53 mg/dL (9-23); Glucose 124 mg/dL (74-106); Magnesium 1.8 mg/dL (1.6-2.6)
[2023-08-20] MEDS: SODIUM CHLORIDE 0.9% 500 ML IV ONE (20:45)
[2023-08-20] MEDS: HYDROcodone-ACET 7.5/325MG TAB PO PRN (22:45)
[2023-08-21] VITALS (92 sets, daily range): BP systolic 83–137; BP diastolic 19–104; PULSE 84–150; RESP 13–32; TEMP 98.1–99.5; O2SAT 91–99
[2023-08-21 03:58] LABS: Eosinophils # (auto) 0.2 10 ^3/uL (0-0.8); Hemoglobin 7.7 g/dL (12.2-16.2); Nucleated Red Blood Cells % 0.6 %
[2023-08-21 04:02] LABS: Basophils # (auto) 0.1 10 ^3/uL (0-0.2); Basophils % (auto) 0.5 % (0.0-2.0); Eosinophils % (auto) 1.9 % (0.0-7.0); Lymphocytes # (auto) 1.8 10 ^3/uL (0.4-5.4); Lymphocytes % (auto) 15.2 % (10.0-50.0); Mean Corpuscular Hemoglobin 25.5 pg (28.0-32.0); Mean Corpuscular Hgb Conc. 30.9 g/dL (32.0-36.0); Mean Corpuscular Volume 82.5 fL (80.0-100.0); Monocytes # (auto) 1.4 10 ^3/uL (0-1.3); Monocytes % (auto) 11.6 % (0.0-12.0); Neutrophils # (auto) 8.2 10 ^3/uL (1.6-8.6); Neutrophils % (auto) 70.8 % (37.0-80.0); Red Blood Cells 3.04 10^6/uL (4.0-5.20); Red Cell Distribution Width 16.7 % (11.8-14.3); White Blood Cell 11.6 10^3/uL (4.4-10.8)
[2023-08-21 04:20] LABS: Albumin 2.4 g/dL (3.2-4.8); Alkaline Phosphatase 115 U/L (46-116); Anion Gap 12 (5-15); Aspartate Aminotransferase 22 U/L (13-40); BUN/Creatinine Ratio 26.5 (10.0-20.0); Blood Urea Nitrogen 50 mg/dL (9-23); Calcium 7.7 mg/dL (8.7-10.4); Carbon Dioxide 18 mmol/L (20-30); Chloride 111 mmol/L (98-107); Glucose 138 mg/dL (74-106); Magnesium 1.8 mg/dL (1.6-2.6); Potassium 3.8 mmol/L (3.5-5.1); Sodium 141 mmol/L (136-145)
[2023-08-21 04:21] LABS: Bilirubin, Total 0.2 mg/dL (0.2-1.0)
[2023-08-21 04:30] LABS: Alanine Aminotransferase < 9 U/L (7-40)
[2023-08-21] MEDS ORDERED: DEXTROSE (50%) 50ML SYRG IV PRN (06:15)
[2023-08-21] MEDS: ACCU-CHEK COMFORT CURVE STRIP VI SCH (07:00)
[2023-08-21] MEDS: POTASSIUM EFFERVESENT TAB 25 MEQ PO ONE (07:02)
[2023-08-21] MEDS: MAGNESIUM SULFATE 1GM/100ML 100 ML IV ONE (07:52)
[2023-08-21] MEDS: ENOXAPARIN SOD 40 MG/0.4 ML SYRINGE SC SCH (11:01)
[2023-08-21] MEDS: FLORASTOR (S. BOULARDII) 250 MG CAP PO SCH (11:02)
[2023-08-21] MEDS: [UNRECOGNIZED DRUG - OTHER] IV SCH (11:52)
[2023-08-21] MEDS: SODIUM CHL 0.9% IV SCH (11:52)
[2023-08-21] MEDS: CEFTOLOZANE TAZOB IV SCH (11:52)
[2023-08-21] MEDS: MAGNESIUM SULFATE 1GM/100ML 100 ML IV SCH (13:18)
[2023-08-21 15:40] LABS: Anion Gap 11 (5-15); Carbon Dioxide 18 mmol/L (20-30); Chloride 108 mmol/L (98-107); Potassium 3.7 mmol/L (3.5-5.1); Sodium 137 mmol/L (136-145)
[2023-08-21 15:41] LABS: Calcium 7.9 mg/dL (8.5-10.1)
[2023-08-21 15:46] LABS: BUN/Creatinine Ratio 26.4 (10.0-20.0); Blood Urea Nitrogen 42 mg/dL (9-23); Glucose 153 mg/dL (74-106); Magnesium 2.1 mg/dL (1.6-2.6)
[2023-08-21] MEDS: POTASSIUM CHL 20MEQ/100ML 100 ML IV ONE (18:55)
[2023-08-21] MEDS: AMITRIPTYLINE HCL 10 MG TAB PO SCH (21:45)
[2023-08-22] VITALS (90 sets, daily range): BP systolic 85–177; BP diastolic 27–153; PULSE 90–150; RESP 14–36; TEMP 97.7–99.8; O2SAT 66–100
[2023-08-22 03:30] LABS: Basophils # (auto) 0 10 ^3/uL (0-0.2); Eosinophils # (auto) 0.1 10 ^3/uL (0-0.8); Hematocrit 24.5 % (36.0-46.0); Lymphocytes # (auto) 1.6 10 ^3/uL (0.4-5.4)
[2023-08-22 03:32] LABS: Basophils % (auto) 0.4 % (0.0-2.0); Eosinophils % (auto) 1.8 % (0.0-7.0); Hemoglobin 7.5 g/dL (12.2-16.2); Lymphocytes % (auto) 20.1 % (10.0-50.0); Mean Corpuscular Hemoglobin 26.3 pg (28.0-32.0); Mean Corpuscular Hgb Conc. 30.8 g/dL (32.0-36.0); Mean Corpuscular Volume 85.5 fL (80.0-100.0); Monocytes % (auto) 12.7 % (0.0-12.0); Neutrophils # (auto) 5.2 10 ^3/uL (1.6-8.6); Nucleated Red Blood Cells % 0.9 %; Red Blood Cells 2.86 10^6/uL (4.0-5.20); Red Cell Distribution Width 16.9 % (11.8-14.3)
[2023-08-22 04:15] LABS: Albumin 2.3 g/dL (3.2-4.8); Alkaline Phosphatase 101 U/L (46-116); Anion Gap 11 (5-15); Aspartate Aminotransferase 26 U/L (13-40); BUN/Creatinine Ratio 17.8 (10.0-20.0); Bilirubin, Total 0.3 mg/dL (0.2-1.0); Calcium 7.5 mg/dL (8.7-10.4); Carbon Dioxide 15 mmol/L (20-30); Chloride 108 mmol/L (98-107); Glucose 108 mg/dL (74-106); Magnesium 1.9 mg/dL (1.6-2.6); Potassium 3.7 mmol/L (3.5-5.1); Sodium 134 mmol/L (136-145); Total Protein 4.9 g/dL (5.7-8.2)
[2023-08-22 04:25] LABS: Alanine Aminotransferase < 9 U/L (7-40); Blood Urea Nitrogen 23 mg/dL (9-23)
[2023-08-22] MEDS ORDERED: POTASSIUM CHL 20MEQ/100ML 100 ML IV ONE (07:15)
[2023-08-22 09:10] LABS: % Iron Saturation 5.8 % (15-50)
[2023-08-22 10:01] LABS: Base Excess -5.1 mmol/L (-2.0-2.0)
[2023-08-22] MEDS: SODIUM BICARB 50mEq/50ml Vial 100 ML in SOD CHL 0.45% 1,000 ML IV SCH (10:15)
[2023-08-22] MEDS: MAGNESIUM SULFATE 1GM/100ML 100 ML IV ONE (10:56)
[2023-08-22] MEDS: POTASSIUM CHL 20MEQ/100ML 100 ML IV SCH (10:58)
[2023-08-22] MEDS: CHOLESTYRAMINE 4 GM POWDER PO SCH (10:59)
[2023-08-22] MEDS: METOPROLOL TARTRATE 1MG/1ML-5ML VIAL IV ONE (13:55)
[2023-08-22 15:07] LABS: Hematocrit 24.9 % (36.0-46.0); Hemoglobin 7.7 g/dL (12.2-16.2)
[2023-08-22 15:23] LABS: Chloride 109 mmol/L (98-107); Sodium 136 mmol/L (136-145)
[2023-08-22 15:24] LABS: Anion Gap 7 (5-15); Carbon Dioxide 20 mmol/L (20-30)
[2023-08-22 15:25] LABS: Calcium 7.7 mg/dL (8.5-10.1)
[2023-08-22 15:29] LABS: BUN/Creatinine Ratio 25.4 (10.0-20.0); Blood Urea Nitrogen 30 mg/dL (9-23); Glucose 106 mg/dL (74-106)
[2023-08-22] MEDS: FERROUS SULFATE 325mg EC TAB PO ONE (15:31)
[2023-08-22] MEDS: LORazepam 0.5 MG TAB PO PRN (18:13)
[2023-08-22] MEDS ORDERED: TRAM50TA2 PO (19:35)
[2023-08-22] MEDS ORDERED: LISI-275 PO (19:36)
[2023-08-22] MEDS ORDERED: AMIT25TA20 PO (19:37)
[2023-08-22] MEDS ORDERED: GABA-1250 PO (19:37)
[2023-08-23] VITALS (54 sets, daily range): BP systolic 80–119; BP diastolic 38–92; PULSE 91–117; RESP 14–28; TEMP 98.6–99.9; O2SAT 88–100
[2023-08-23 03:43] LABS: Hematocrit 24.8 % (36.0-46.0); Hemoglobin 8.1 g/dL (12.2-16.2); Mean Corpuscular Hemoglobin 25.9 pg (28.0-32.0); Mean Corpuscular Hgb Conc. 32.6 g/dL (32.0-36.0); Mean Corpuscular Volume 79.5 fL (80.0-100.0); Red Blood Cells 3.12 10^6/uL (4.0-5.20); White Blood Cell 10.1 10^3/uL (4.4-10.8)
[2023-08-23 03:45] LABS: Basophils % (manual) 0 (0.0-2.0); Blast Cells 0; Eosinophils % (manual) 0 (0-7); Metamyelocytes % 0; Myelocytes % 0; Promyelocytes % 0; Reactive Lymphocytes 0
[2023-08-23 04:03] LABS: Albumin 2.5 g/dL (3.2-4.8); Alkaline Phosphatase 100 U/L (46-116); Anion Gap 10 (5-15); Aspartate Aminotransferase 24 U/L (13-40); BUN/Creatinine Ratio 25.8 (10.0-20.0); Blood Urea Nitrogen 32 mg/dL (9-23); Calcium 7.8 mg/dL (8.7-10.4); Carbon Dioxide 18 mmol/L (20-30); Chloride 109 mmol/L (98-107); Glucose 117 mg/dL (74-106); Magnesium 1.7 mg/dL (1.6-2.6); Potassium 4.2 mmol/L (3.5-5.1); Sodium 137 mmol/L (136-145)
[2023-08-23 04:04] LABS: Bilirubin, Total 0.3 mg/dL (0.2-1.0); Total Protein 5.1 g/dL (5.7-8.2)
[2023-08-23 04:07] LABS: Alanine Aminotransferase < 9 U/L (7-40)
[2023-08-23 04:31] LABS: Band Neutrophils % (manual) 4; Lymphocytes % (manual) 22 (10.0-50.0); Monocytes % (manual) 10 (0-12); Platelet Estimate Adequate
[2023-08-23] MEDS: MAGNESIUM SULFATE 1GM/100ML 100 ML IV ONE (08:51)
[2023-08-23] MEDS: GABAPENTIN 300 MG CAP PO SCH (09:45)
[2023-08-23] MEDS: FERROUS SULFATE 325mg EC TAB PO SCH (09:45)
[2023-08-23] MEDS: AMITRIPTYLINE HCL 25 MG TAB PO SCH (09:45)
[2023-08-23] MEDS: SODIUM CHLORIDE 0.9% 250 ML IV ONE (11:00)
[2023-08-23] MEDS: CeftoloZANE-TAZOB 1g/0.5g VL 1.5 GM in SODIUM CHL 0.9% 100 ML IV SCH (20:56)
[2023-08-24] VITALS (42 sets, daily range): BP systolic 80–115; BP diastolic 30–59; PULSE 85–111; RESP 9–22; TEMP 97.6–100.9; O2SAT 94–100
[2023-08-24] MEDS: ALBUMIN 25% 50 ML IV ONE (01:24)
[2023-08-24] MEDS: ALBUMIN 25% 100 ML IV ONE (03:15)
[2023-08-24] MEDS: SODIUM CHLORIDE 0.9% 500 ML IV ONE ×2 (03:26→16:30)
[2023-08-24 05:28] LABS: Hematocrit 21.7 % (36.0-46.0); Mean Corpuscular Hemoglobin 25.4 pg (28.0-32.0); Mean Corpuscular Hgb Conc. 30.3 g/dL (32.0-36.0); White Blood Cell 15.7 10^3/uL (4.4-10.8)
[2023-08-24 05:33] LABS: Mean Corpuscular Volume 83.7 fL (80.0-100.0); Red Cell Distribution Width 16.9 % (11.8-14.3)
[2023-08-24 05:40] LABS: Basophils % (manual) 0 (0.0-2.0); Blast Cells 0; Eosinophils % (manual) 0 (0-7); Hemoglobin 6.6 g/dL (12.2-16.2); Myelocytes % 0; Promyelocytes % 0; Reactive Lymphocytes 0
[2023-08-24 05:43] LABS: Chloride 108 mmol/L (98-107); Potassium 4.7 mmol/L (3.5-5.1); Sodium 137 mmol/L (136-145)
[2023-08-24 05:44] LABS: Anion Gap 11 (5-15); Calcium 7.9 mg/dL (8.5-10.1); Carbon Dioxide 18 mmol/L (20-30)
[2023-08-24 05:49] LABS: BUN/Creatinine Ratio 21.6 (10.0-20.0); Blood Urea Nitrogen 36 mg/dL (9-23); Glucose 105 mg/dL (74-106)
[2023-08-24 05:50] LABS: Magnesium 2.1 mg/dL (1.6-2.6)
[2023-08-24 05:54] LABS: Free T3 1.33 pg/mL (2.3-4.2)
[2023-08-24 05:54] LABS: Base Excess -10.2 mmol/L (-2.0-2.0)
[2023-08-24 05:55] LABS: Free T4 (Free Thyroxine) 0.68 ng/dL (0.89-1.76)
[2023-08-24] MEDS: SODIUM BICARB 8.4% 50Meq/50ml SYR INJ ONE (07:10)
[2023-08-24] MEDS: SODIUM BICARB 8.4% 50Meq/50ml SYR Vial IV ONE (07:10)
[2023-08-24 07:39] LABS: Band Neutrophils % (manual) 14; Lymphocytes % (manual) 17 (10.0-50.0)
[2023-08-24 07:40] LABS: Anisocytosis Slight; Hypochromia Slight; Metamyelocytes % 1; Monocytes % (manual) 19 (0-12); Platelet Estimate Increased
[2023-08-24 08:21] LABS: Hematocrit 22.2 % (36.0-46.0)
[2023-08-24 08:27] LABS: Hemoglobin 6.8 g/dL (12.2-16.2)
[2023-08-24 08:35] LABS: INR 1.61 (0.9-1.15); Prothrombin Time 16.5 sec (9.3-11.8)
[2023-08-24 09:25] LABS: Albumin 2.8 g/dL (3.2-4.8); Alkaline Phosphatase 103 U/L (46-116); Aspartate Aminotransferase 26 U/L (13-40); Bilirubin, Direct 0.2 mg/dL (<0.3); Bilirubin, Total 0.2 mg/dL (0.2-1.0); Total Protein 5.2 g/dL (5.7-8.2)
[2023-08-24 09:26] LABS: Alanine Aminotransferase < 9 U/L (7-40)
[2023-08-24 09:56] LABS: Base Excess -7.5 mmol/L (-2.0-2.0)
[2023-08-24] MEDS: PANTOPRAZOLE 40 MG/10 ML VIAL INJ IV SCH (11:18)
[2023-08-24] MEDS: SODIUM BICARB 50mEq/50ml Vial 100 ML in D5W 5% 1,000 ML IV SCH (11:55)
[2023-08-24] MEDS: SODIUM BICARB 50mEq/50ml Vial 150 ML in D5W 5% 1,000 ML IV SCH (19:00)
[2023-08-24 19:05] LABS: Basophils # (auto) 0.1 10 ^3/uL (0-0.2); Basophils % (auto) 0.6 % (0.0-2.0); Eosinophils # (auto) 0.3 10 ^3/uL (0-0.8); Eosinophils % (auto) 3.1 % (0.0-7.0); Hematocrit 22.2 % (36.0-46.0); Hemoglobin 7.1 g/dL (12.2-16.2); Lymphocytes # (auto) 1.4 10 ^3/uL (0.4-5.4); Lymphocytes % (auto) 16.5 % (10.0-50.0); Mean Corpuscular Hemoglobin 26.4 pg (28.0-32.0); Mean Corpuscular Hgb Conc. 31.8 g/dL (32.0-36.0); Monocytes % (auto) 12.5 % (0.0-12.0); Neutrophils # (auto) 5.6 10 ^3/uL (1.6-8.6); Neutrophils % (auto) 67.3 % (37.0-80.0); Nucleated Red Blood Cells % 0.8 %; Red Blood Cells 2.67 10^6/uL (4.0-5.20); Red Cell Distribution Width 16.5 % (11.8-14.3); White Blood Cell 8.3 10^3/uL (4.4-10.8)
[2023-08-24 19:18] LABS: Albumin 2.5 g/dL (3.2-4.8); Alkaline Phosphatase 84 U/L (46-116); Anion Gap 7 (5-15); Aspartate Aminotransferase 22 U/L (13-40); BUN/Creatinine Ratio 23.8 (10.0-20.0); Bilirubin, Total 0.3 mg/dL (0.2-1.0); Blood Urea Nitrogen 35 mg/dL (9-23); Calcium 7.8 mg/dL (8.7-10.4); Carbon Dioxide 22 mmol/L (20-30); Chloride 110 mmol/L (98-107); Glucose 94 mg/dL (74-106); Sodium 139 mmol/L (136-145); Total Protein 4.9 g/dL (5.7-8.2)
[2023-08-24 19:19] LABS: Alanine Aminotransferase < 9 U/L (7-40)
[2023-08-24 19:58] LABS: Base Excess -7.1 mmol/L (-2.0-2.0)
[2023-08-25] VITALS (26 sets, daily range): BP systolic 85–124; BP diastolic 31–92; PULSE 94–122; RESP 12–27; TEMP 97.9–101.5; O2SAT 88–100
[2023-08-25 04:51] LABS: Basophils # (auto) 0.1 10 ^3/uL (0-0.2); Basophils % (auto) 0.8 % (0.0-2.0); Eosinophils # (auto) 0.3 10 ^3/uL (0-0.8); Eosinophils % (auto) 3.3 % (0.0-7.0); Hematocrit 21.4 % (36.0-46.0); Hemoglobin 7.1 g/dL (12.2-16.2); Lymphocytes # (auto) 1.7 10 ^3/uL (0.4-5.4); Lymphocytes % (auto) 18.9 % (10.0-50.0); Mean Corpuscular Hemoglobin 26.9 pg (28.0-32.0); Mean Corpuscular Hgb Conc. 33.1 g/dL (32.0-36.0); Mean Corpuscular Volume 81.1 fL (80.0-100.0); Monocytes # (auto) 1.2 10 ^3/uL (0-1.3); Monocytes % (auto) 13.8 % (0.0-12.0); Neutrophils # (auto) 5.7 10 ^3/uL (1.6-8.6); Neutrophils % (auto) 63.2 % (37.0-80.0); Nucleated Red Blood Cells % 0.3 %; Red Blood Cells 2.64 10^6/uL (4.0-5.20); Red Cell Distribution Width 16.3 % (11.8-14.3); White Blood Cell 8.9 10^3/uL (4.4-10.8)
[2023-08-25 05:08] LABS: Albumin 2.5 g/dL (3.2-4.8); Alkaline Phosphatase 90 U/L (46-116); Anion Gap 8 (5-15); Aspartate Aminotransferase 26 U/L (13-40); BUN/Creatinine Ratio 28.1 (10.0-20.0); Blood Urea Nitrogen 34 mg/dL (9-23); Calcium 7.6 mg/dL (8.5-10.1); Carbon Dioxide 25 mmol/L (20-30); Chloride 108 mmol/L (98-107); Glucose 95 mg/dL (74-106); Magnesium 1.7 mg/dL (1.6-2.6); Potassium 3.6 mmol/L (3.5-5.1); Sodium 141 mmol/L (136-145)
[2023-08-25 05:09] LABS: Bilirubin, Total 0.3 mg/dL (0.2-1.0); Total Protein 4.7 g/dL (5.7-8.2)
[2023-08-25 05:14] LABS: Alanine Aminotransferase < 9 U/L (7-40)
[2023-08-25] MEDS: MAGNESIUM SULFATE 1GM/100ML 100 ML IV ONE (07:56)
[2023-08-25] MEDS: POTASSIUM CHL 20MEQ/100ML 100 ML IV ONE (07:56)
[2023-08-25 08:37] LABS: Base Excess -0.9 mmol/L (-2.0-2.0)
[2023-08-26] VITALS (26 sets, daily range): BP systolic 95–130; BP diastolic 47–73; PULSE 98–120; RESP 12–25; TEMP 97.9–99.7; O2SAT 6–100
[2023-08-26 05:05] LABS: Hemoglobin 7.5 g/dL (12.2-16.2); Red Cell Distribution Width 16.6 % (11.8-14.3); White Blood Cell 11.7 10^3/uL (4.4-10.8)
[2023-08-26 05:07] LABS: Hematocrit 23.3 % (36.0-46.0); Mean Corpuscular Hemoglobin 26.2 pg (28.0-32.0); Mean Corpuscular Hgb Conc. 32.4 g/dL (32.0-36.0); Mean Corpuscular Volume 80.7 fL (80.0-100.0); Red Blood Cells 2.88 10^6/uL (4.0-5.20)
[2023-08-26 05:15] LABS: Basophils % (manual) 0 (0.0-2.0); Blast Cells 0; Eosinophils % (manual) 0 (0-7); Metamyelocytes % 0; Myelocytes % 0; Promyelocytes % 0; Reactive Lymphocytes 0
[2023-08-26 05:22] LABS: Alanine Aminotransferase < 9 U/L (7-40); Albumin 2.5 g/dL (3.2-4.8); Alkaline Phosphatase 99 U/L (46-116); Anion Gap 8 (5-15); Aspartate Aminotransferase 33 U/L (13-40); BUN/Creatinine Ratio 29.3 (10.0-20.0); Bilirubin, Total 0.4 mg/dL (0.2-1.0); Blood Urea Nitrogen 24 mg/dL (9-23); Calcium 7.9 mg/dL (8.7-10.4); Carbon Dioxide 24 mmol/L (20-30); Chloride 110 mmol/L (98-107); Glucose 88 mg/dL (74-106); Magnesium 1.7 mg/dL (1.6-2.6); Potassium 3.8 mmol/L (3.5-5.1); Sodium 142 mmol/L (136-145)
[2023-08-26 06:28] LABS: Band Neutrophils % (manual) 21; Lymphocytes % (manual) 22 (10.0-50.0); Monocytes % (manual) 12 (0-12); Platelet Estimate Increased; Stomatocytes Many
[2023-08-26 06:29] LABS: Hypochromia Slight; Target Cell FEW
[2023-08-26 14:06] LABS: Base Excess -6.2 mmol/L (-2.0-2.0)
[2023-08-26] MEDS: LIDOCAINE 2% (LOCAL ANESTH.) PF 5ml SDV ONE (16:48)
[2023-08-26] MEDS: MORPHINE SULFATE INJ 2 MG/ml SYRG IV ONE ×2 (18:45→22:41)
[2023-08-26] MEDS: MORPHINE SULFATE INJ 2 MG/ml SYRG ONE (19:04)
[2023-08-27] VITALS (23 sets, daily range): BP systolic 96–123; BP diastolic 37–69; PULSE 91–108; RESP 12–19; TEMP 98.3–100; O2SAT 2–100
[2023-08-27 08:21] LABS: Hemoglobin 7.9 g/dL (12.2-16.2)
[2023-08-27 08:22] LABS: Anion Gap 8 (5-15); Carbon Dioxide 24 mmol/L (20-30); Chloride 110 mmol/L (98-107); Potassium 4.6 mmol/L (3.5-5.1); Sodium 142 mmol/L (136-145)
[2023-08-27 08:23] LABS: Hematocrit 25.1 % (36.0-46.0); Mean Corpuscular Hemoglobin 26.2 pg (28.0-32.0); Mean Corpuscular Hgb Conc. 31.5 g/dL (32.0-36.0); Mean Corpuscular Volume 83.2 fL (80.0-100.0); Red Blood Cells 3.01 10^6/uL (4.0-5.20); Red Cell Distribution Width 17.1 % (11.8-14.3); White Blood Cell 15.2 10^3/uL (4.4-10.8)
[2023-08-27 08:25] LABS: Calcium 8.3 mg/dL (8.5-10.1)
[2023-08-27 08:28] LABS: BUN/Creatinine Ratio 21.7 (10.0-20.0); Blood Urea Nitrogen 30 mg/dL (9-23); Glucose 112 mg/dL (74-106)
[2023-08-27 08:31] LABS: Basophils % (manual) 0 (0.0-2.0); Blast Cells 0; Metamyelocytes % 0; Myelocytes % 0; Promyelocytes % 0; Reactive Lymphocytes 0
[2023-08-27 08:47] LABS: Eosinophils % (manual) 2 (0-7); Lymphocytes % (manual) 12 (10.0-50.0); Monocytes % (manual) 9 (0-12)
[2023-08-27 08:48] LABS: Band Neutrophils % (manual) 16
[2023-08-27 08:53] LABS: Anisocytosis Slight; Hypochromia Slight; Platelet Estimate Increased; Polychromasia Slight; Stomatocytes Few
[2023-08-27] MEDS: IOHEXOL 300 MG/ML 100ML BOTTLE IJ ONE (09:49)
[2023-08-28] VITALS (27 sets, daily range): BP systolic 94–127; BP diastolic 42–71; PULSE 96–102; RESP 10–29; TEMP 98.5–100.3; O2SAT 84–97
[2023-08-28 05:06] LABS: Hemoglobin 7.8 g/dL (12.2-16.2)
[2023-08-28 05:08] LABS: Hematocrit 24.7 % (36.0-46.0); Mean Corpuscular Hgb Conc. 31.5 g/dL (32.0-36.0); Mean Corpuscular Volume 82.7 fL (80.0-100.0); Red Blood Cells 2.99 10^6/uL (4.0-5.20); Red Cell Distribution Width 17.2 % (11.8-14.3)
[2023-08-28 05:22] LABS: Basophils % (manual) 0 (0.0-2.0); Blast Cells 0; Eosinophils % (manual) 0 (0-7); Promyelocytes % 0; Reactive Lymphocytes 0
[2023-08-28 05:31] LABS: Alkaline Phosphatase 130 U/L (46-116); Anion Gap 9 (5-15); Aspartate Aminotransferase 22 U/L (13-40); BUN/Creatinine Ratio 23.9 (10.0-20.0); Blood Urea Nitrogen 39 mg/dL (9-23); Calcium 8.2 mg/dL (8.5-10.1); Carbon Dioxide 21 mmol/L (20-30); Chloride 111 mmol/L (98-107); Glucose 88 mg/dL (74-106); Magnesium 1.9 mg/dL (1.6-2.6); Potassium 4.4 mmol/L (3.5-5.1); Sodium 141 mmol/L (136-145)
[2023-08-28 05:32] LABS: Albumin 2.6 g/dL (3.2-4.8); Bilirubin, Total 0.2 mg/dL (0.2-1.0); Total Protein 5.4 g/dL (5.7-8.2)
[2023-08-28 05:45] LABS: Alanine Aminotransferase < 9 U/L (7-40)
[2023-08-28 07:04] LABS: Band Neutrophils % (manual) 12; Lymphocytes % (manual) 20 (10.0-50.0); Metamyelocytes % 1; Monocytes % (manual) 9 (0-12); Myelocytes % 3
[2023-08-28 07:05] LABS: Anisocytosis Slight; Platelet Estimate Increased; Stomatocytes Moderate
[2023-08-28] MEDS: LORazepam 2MG/ML-1ML VIAL IV ONE (11:10)
[2023-08-29] VITALS (26 sets, daily range): BP systolic 86–114; BP diastolic 42–71; PULSE 93–103; RESP 10–25; TEMP 97.7–100.2; O2SAT 18–100
[2023-08-29 05:36] LABS: Hemoglobin 7.8 g/dL (12.2-16.2); Red Cell Distribution Width 17.6 % (11.8-14.3)
[2023-08-29 05:40] LABS: Hematocrit 25.5 % (36.0-46.0); Mean Corpuscular Hemoglobin 25.8 pg (28.0-32.0); Mean Corpuscular Hgb Conc. 30.7 g/dL (32.0-36.0); Red Blood Cells 3.04 10^6/uL (4.0-5.20); White Blood Cell 12.2 10^3/uL (4.4-10.8)
[2023-08-29 06:06] LABS: Albumin 2.5 g/dL (3.2-4.8); Alkaline Phosphatase 136 U/L (46-116); Anion Gap 10 (5-15); Aspartate Aminotransferase 23 U/L (13-40); BUN/Creatinine Ratio 27.3 (10.0-20.0); Bilirubin, Total 0.3 mg/dL (0.2-1.0); Blood Urea Nitrogen 44 mg/dL (9-23); Calcium 8.4 mg/dL (8.7-10.4); Carbon Dioxide 21 mmol/L (20-30); Chloride 112 mmol/L (98-107); Glucose 84 mg/dL (74-106); Potassium 4.6 mmol/L (3.5-5.1); Sodium 143 mmol/L (136-145)
[2023-08-29 06:07] LABS: Total Protein 5.6 g/dL (5.7-8.2)
[2023-08-29 06:16] LABS: Basophils % (manual) 0 (0.0-2.0); Blast Cells 0; Eosinophils % (manual) 0 (0-7); Myelocytes % 0; Promyelocytes % 0; Reactive Lymphocytes 0
[2023-08-29 06:33] LABS: Alanine Aminotransferase < 9 U/L (7-40)
[2023-08-29 09:49] LABS: Band Neutrophils % (manual) 10; Lymphocytes % (manual) 12 (10.0-50.0); Metamyelocytes % 3; Monocytes % (manual) 13 (0-12)
[2023-08-29 09:50] LABS: Platelet Estimate Increased
[2023-08-29] MEDS: OMNIPAQUE 12mg/ml 500ml ORAL SOLUTION PO ONE (13:45)
[2023-08-29] MEDS: LORazepam 2MG/ML-1ML VIAL IV ONE (14:39)
[2023-08-30] VITALS (20 sets, daily range): BP systolic 103–131; BP diastolic 51–63; PULSE 76–109; RESP 13–28; TEMP 97.6–100.2; O2SAT 91–100
[2023-08-30 05:21] LABS: Basophils # (auto) 0 10 ^3/uL (0-0.2); Basophils % (auto) 0.3 % (0.0-2.0); Eosinophils # (auto) 0.1 10 ^3/uL (0-0.8); Eosinophils % (auto) 0.5 % (0.0-7.0); Hemoglobin 7.7 g/dL (12.2-16.2); Nucleated Red Blood Cells % 0.2 %
[2023-08-30 05:34] LABS: Albumin 2.4 g/dL (3.2-4.8); Alkaline Phosphatase 136 U/L (46-116); Aspartate Aminotransferase 24 U/L (13-40); BUN/Creatinine Ratio 36.6 (10.0-20.0); Blood Urea Nitrogen 45 mg/dL (9-23); Calcium 8.1 mg/dL (8.7-10.4); Carbon Dioxide 21 mmol/L (20-30); Glucose 73 mg/dL (74-106); Magnesium 1.8 mg/dL (1.6-2.6)
[2023-08-30 05:35] LABS: Bilirubin, Total 0.3 mg/dL (0.2-1.0); Total Protein 5.3 g/dL (5.7-8.2)
[2023-08-30 05:37] LABS: Hematocrit 25.2 % (36.0-46.0); Lymphocytes # (auto) 1.7 10 ^3/uL (0.4-5.4); Lymphocytes % (auto) 13.9 % (10.0-50.0); Mean Corpuscular Hemoglobin 25.6 pg (28.0-32.0); Mean Corpuscular Hgb Conc. 30.7 g/dL (32.0-36.0); Mean Corpuscular Volume 83.5 fL (80.0-100.0); Monocytes % (auto) 8.5 % (0.0-12.0); Neutrophils # (auto) 9.3 10 ^3/uL (1.6-8.6); Neutrophils % (auto) 76.8 % (37.0-80.0); Red Blood Cells 3.01 10^6/uL (4.0-5.20); Red Cell Distribution Width 17.3 % (11.8-14.3); White Blood Cell 12.1 10^3/uL (4.4-10.8)
[2023-08-30 05:44] LABS: Anion Gap 10 (5-15); Chloride 115 mmol/L (98-107); Potassium 4.2 mmol/L (3.5-5.1); Sodium 146 mmol/L (136-145)
[2023-08-30 05:47] LABS: Alanine Aminotransferase < 9 U/L (7-40)
[2023-08-30] MEDS: MORPHINE SULFATE INJ 2 MG/ml SYRG IV PRN (16:12)
[2023-08-30] MEDS ORDERED: HYDROmorphone HCL 2 MG/ML VL/or syr IV PRN (16:15)
[2023-08-30] MEDS: MICAFUNGIN SODIUM 100 MG in SODIUM CHL 0.9% 100 ML IV ONE (17:39)
[2023-08-30] MEDS: HYDROmorphone HCL 2 MG/ML VL/or syr IV PRN (20:37)
[2023-08-31] VITALS (77 sets, daily range): BP systolic 68–129; BP diastolic 31–74; PULSE 85–157; RESP 10–24; TEMP 97.4–99.1; O2SAT 89–100
[2023-08-31] MEDS: SODIUM BICARB 8.4% 50Meq/50ml SYR Vial IV ONE ×2 (03:49→03:56)
[2023-08-31 04:38] LABS: Base Excess -9.7 mmol/L (-2.0-2.0)
[2023-08-31 06:02] LABS: Basophils # (auto) 0.1 10 ^3/uL (0-0.2); Basophils % (auto) 0.3 % (0.0-2.0); Eosinophils # (auto) 0 10 ^3/uL (0-0.8); Eosinophils % (auto) 0.1 % (0.0-7.0); Hemoglobin 8.5 g/dL (12.2-16.2)
[2023-08-31 06:04] LABS: Hematocrit 29.3 % (36.0-46.0); Lymphocytes # (auto) 2.3 10 ^3/uL (0.4-5.4); Lymphocytes % (auto) 9.4 % (10.0-50.0); Mean Corpuscular Hemoglobin 25.3 pg (28.0-32.0); Mean Corpuscular Hgb Conc. 28.9 g/dL (32.0-36.0); Mean Corpuscular Volume 87.4 fL (80.0-100.0); Monocytes # (auto) 1.8 10 ^3/uL (0-1.3); Monocytes % (auto) 7.5 % (0.0-12.0); Neutrophils # (auto) 19.7 10 ^3/uL (1.6-8.6); Neutrophils % (auto) 82.7 % (37.0-80.0); Nucleated Red Blood Cells % 0.4 %; Red Blood Cells 3.36 10^6/uL (4.0-5.20); Red Cell Distribution Width 18.2 % (11.8-14.3); White Blood Cell 23.9 10^3/uL (4.4-10.8)
[2023-08-31 06:15] LABS: Alanine Aminotransferase 10 U/L (7-40); Albumin 2.5 g/dL (3.2-4.8); Alkaline Phosphatase 173 U/L (46-116); Anion Gap 9 (5-15); Aspartate Aminotransferase 39 U/L (13-40); BUN/Creatinine Ratio 28.7 (10.0-20.0); Blood Urea Nitrogen 39 mg/dL (9-23); Calcium 8.4 mg/dL (8.7-10.4); Carbon Dioxide 22 mmol/L (20-30); Chloride 118 mmol/L (98-107); Glucose 103 mg/dL (74-106); Magnesium 2.1 mg/dL (1.6-2.6); Potassium 5.3 mmol/L (3.5-5.1); Sodium 149 mmol/L (136-145)
[2023-08-31 06:16] LABS: Bilirubin, Total 0.2 mg/dL (0.2-1.0); Total Protein 5.9 g/dL (5.7-8.2)
[2023-08-31 07:19] LABS: Base Excess -5.8 mmol/L (-2.0-2.0)
[2023-08-31] MEDS ORDERED: VANCOMYCIN PER PHARMACY 0 MG IV SCH (07:45)
[2023-08-31] MEDS: SODIUM CHLORIDE 0.9% 500 ML IV ONE ×2 (08:25→11:28)
[2023-08-31] MEDS: DEXTROSE (50%) 50ML SYRG IV ONE (08:45)
[2023-08-31] MEDS: VANCOMYCIN 1GM/200ML 200 ML IV ONE (08:45)
[2023-08-31] MEDS: InsuLIN REG 1unit/0.01ml Soln (100units/ml) IV ONE (08:50)
[2023-08-31] MEDS: SODIUM CHLORIDE 0.9% 1,000 ML IV SCH (09:00)
[2023-08-31] MEDS: ALBUTEROL SULF 2.5 MG/0.5ML(0.5%) NEB SOLN NEB ONE (09:13)
[2023-08-31 09:17] LABS: Base Excess -5.5 mmol/L (-2.0-2.0)
[2023-08-31 16:24] LABS: Chloride 117 mmol/L (98-107); Potassium 4.1 mmol/L (3.5-5.1); Sodium 152 mmol/L (136-145)
[2023-08-31 16:25] LABS: Anion Gap 11 (5-15); Carbon Dioxide 24 mmol/L (20-30)
[2023-08-31 16:26] LABS: Calcium 7.8 mg/dL (8.5-10.1)
[2023-08-31 16:30] LABS: Glucose 97 mg/dL (74-106)
[2023-08-31 16:31] LABS: BUN/Creatinine Ratio 35.7 (10.0-20.0)
[2023-08-31 16:39] LABS: Blood Urea Nitrogen 51 mg/dL (9-23)
[2023-08-31] MEDS: NOREPINEPHRINE 8 MG/250ML KIT 250 ML IV ONE (16:47)
[2023-08-31] MEDS: LORazepam 2MG/ML-1ML VIAL ONE (17:48)
[2023-08-31] MEDS: LORazepam 2MG/ML-1ML VIAL IV ONE (17:49)
[2023-08-31 18:39] LABS: Base Excess -5.3 mmol/L (-2.0-2.0)
[2023-08-31] MEDS ORDERED: HYDROmorphone HCL 2 MG/ML VL/or syr IV PRN (18:45)
[2023-08-31] MEDS: MICAFUNGIN SODIUM 100 MG in SODIUM CHL 0.9% 100 ML IV SCH (18:53)
[2023-08-31] MEDS: D5W/SOD CHL 0.45% 1,000 ML IV SCH (21:47)
[2023-09-01] VITALS (83 sets, daily range): BP systolic 92–151; BP diastolic 46–101; PULSE 82–147; RESP 8–21; TEMP 97.7–98.4; O2SAT 84–100
[2023-09-01] MEDS: VANCOMYCIN 1GM/200ML 200 ML IV SCH (00:20)
[2023-09-01] MEDS: HYDROmorphone HCL 2 MG/ML VL/or syr IV PRN (00:22)
[2023-09-01] MEDS: LORazepam 2MG/ML-1ML VIAL IV PRN (02:51)
[2023-09-01 04:00] LABS: Base Excess -5.9 mmol/L (-2.0-2.0)
[2023-09-01 05:37] LABS: Eosinophils # (auto) 0.1 10 ^3/uL (0-0.8); Eosinophils % (auto) 0.5 % (0.0-7.0); Red Blood Cells 2.75 10^6/uL (4.0-5.20)
[2023-09-01 05:38] LABS: Basophils # (auto) 0.1 10 ^3/uL (0-0.2); Basophils % (auto) 0.4 % (0.0-2.0); Hematocrit 23.4 % (36.0-46.0); Mean Corpuscular Hemoglobin 25.6 pg (28.0-32.0); Mean Corpuscular Hgb Conc. 30.1 g/dL (32.0-36.0); Mean Corpuscular Volume 85.1 fL (80.0-100.0); Monocytes # (auto) 0.6 10 ^3/uL (0-1.3); Monocytes % (auto) 4.4 % (0.0-12.0); Neutrophils # (auto) 10.8 10 ^3/uL (1.6-8.6); Neutrophils % (auto) 79.7 % (37.0-80.0); Nucleated Red Blood Cells % 1.1 %; Red Cell Distribution Width 18.4 % (11.8-14.3); White Blood Cell 13.5 10^3/uL (4.4-10.8)
[2023-09-01 05:54] LABS: Alanine Aminotransferase 10 U/L (7-40); Alkaline Phosphatase 149 U/L (46-116); Anion Gap 12 (5-15); Aspartate Aminotransferase 28 U/L (13-40); BUN/Creatinine Ratio 31.5 (10.0-20.0); Blood Urea Nitrogen 47 mg/dL (9-23); Calcium 7.6 mg/dL (8.7-10.4); Carbon Dioxide 20 mmol/L (20-30); Chloride 120 mmol/L (98-107); Glucose 134 mg/dL (74-106); Magnesium 1.9 mg/dL (1.6-2.6); Potassium 3.8 mmol/L (3.5-5.1); Sodium 152 mmol/L (136-145)
[2023-09-01 05:55] LABS: Albumin 2.2 g/dL (3.2-4.8); Bilirubin, Total 0.2 mg/dL (0.2-1.0); Total Protein 5.2 g/dL (5.7-8.2)
[2023-09-01 07:58] LABS: Platelet Estimate Increased; Stomatocytes Few
[2023-09-01] MEDS: GASTROGRAFIN 120 ML SOL ONE (09:52)
[2023-09-01 14:39] LABS: Hematocrit 32.7 % (36.0-46.0); Hemoglobin 9.4 g/dL (12.2-16.2)
[2023-09-01] MEDS: ACCU-CHEK COMFORT CURVE STRIP VI SCH (14:40)
[2023-09-01] MEDS ORDERED: DEXTROSE (50%) 50ML SYRG IV SCH (16:00)
[2023-09-01] MEDS: InsuLIN REG 1unit/0.01ml Soln (100units/ml) SC SCH (16:59)
[2023-09-01] MEDS: AMINO ACID INFUSION IN D10W 1,000 ML IV SCH (20:35)
[2023-09-01] MEDS ORDERED: CLINIMIX PER PHARMACY 0 ML IV SCH (22:00)
[2023-09-02] VITALS (47 sets, daily range): BP systolic 94–166; BP diastolic 40–88; PULSE 86–141; RESP 11–22; TEMP 97.3–99.7; O2SAT 86–99
[2023-09-02 00:27] LABS: Hematocrit 28.9 % (36.0-46.0); Hemoglobin 8.9 g/dL (12.2-16.2)
[2023-09-02 06:42] LABS: Alanine Aminotransferase 11 U/L (7-40); Albumin 2.3 g/dL (3.2-4.8); Alkaline Phosphatase 169 U/L (46-116); Calcium 7.7 mg/dL (8.5-10.1); Carbon Dioxide 19 mmol/L (20-30); Chloride 123 mmol/L (98-107); Glucose 150 mg/dL (74-106); Potassium 3.1 mmol/L (3.5-5.1)
[2023-09-02 06:43] LABS: Anion Gap 13 (5-15); Aspartate Aminotransferase 32 U/L (13-40); BUN/Creatinine Ratio 40.8 (10.0-20.0); Bilirubin, Total 0.3 mg/dL (0.2-1.0); Blood Urea Nitrogen 49 mg/dL (9-23); Magnesium 1.7 mg/dL (1.6-2.6); Phosphorus 3.6 mg/dL (2.4-5.1); Sodium 155 mmol/L (136-145); Total Protein 5.4 g/dL (5.7-8.2)
[2023-09-02 07:19] LABS: White Blood Cell 9.6 10^3/uL (4.4-10.8)
[2023-09-02 07:22] LABS: Hematocrit 26.9 % (36.0-46.0); Hemoglobin 8.5 g/dL (12.2-16.2); Mean Corpuscular Hemoglobin 26.8 pg (28.0-32.0); Mean Corpuscular Hgb Conc. 31.7 g/dL (32.0-36.0); Mean Corpuscular Volume 84.4 fL (80.0-100.0); Red Blood Cells 3.19 10^6/uL (4.0-5.20); Red Cell Distribution Width 17.4 % (11.8-14.3)
[2023-09-02 07:25] LABS: Partial Thromboplastin Time 44.6 SEC (24.5-34.5); Prothrombin Time 44.5 sec (9.3-11.8)
[2023-09-02 07:53] LABS: INR 4.71 (0.9-1.15)
[2023-09-02] MEDS: POTASSIUM CHL 20MEQ/100ML 100 ML IV SCH (08:59)
[2023-09-02] MEDS: D5W 5% 1,000 ML IV SCH (09:02)
[2023-09-02 09:05] LABS: Band Neutrophils % (manual) 5; Basophils % (manual) 0 (0.0-2.0); Blast Cells 0; Eosinophils % (manual) 0 (0-7); Metamyelocytes % 0; Myelocytes % 0; Promyelocytes % 0; Reactive Lymphocytes 0
[2023-09-02 09:06] LABS: Lymphocytes % (manual) 9 (10.0-50.0); Monocytes % (manual) 5 (0-12); Platelet Estimate Increased
[2023-09-02 09:41] LABS: Base Excess -7.8 mmol/L (-2.0-2.0)
[2023-09-02 10:10] LABS: Partial Thromboplastin Time 43.9 SEC (24.5-34.5); Prothrombin Time 47.8 sec (9.3-11.8)
[2023-09-02 10:19] LABS: INR 5.09 (0.9-1.15)
[2023-09-02] MEDS: phytonadione 5 MG in SODIUM CHL 0.9% 50 ML IV ONE ×2 (10:21→11:26)
[2023-09-02] MEDS: LACTATED RINGER'S 500 ML IV ONE (10:30)
[2023-09-02] MEDS: MAGNESIUM SULFATE 1GM/100ML 100 ML IV SCH (16:00)
[2023-09-02 19:48] LABS: Hematocrit 23.9 % (36.0-46.0); Hemoglobin 7.6 g/dL (12.2-16.2)
[2023-09-02 21:31] LABS: INR 1.29 (0.9-1.15); Prothrombin Time 13.4 sec (9.3-11.8)
[2023-09-03] VITALS (48 sets, daily range): BP systolic 110–174; BP diastolic 46–143; PULSE 80–101; RESP 10–28; TEMP 97.5–99.3; O2SAT 91–100
[2023-09-03 05:16] LABS: Eosinophils # (auto) 0.1 10 ^3/uL (0-0.8); Monocytes # (auto) 0.7 10 ^3/uL (0-1.3)
[2023-09-03 05:18] LABS: Basophils # (auto) 0 10 ^3/uL (0-0.2); Basophils % (auto) 0.3 % (0.0-2.0); Hematocrit 27.5 % (36.0-46.0); Hemoglobin 8.9 g/dL (12.2-16.2); Lymphocytes # (auto) 1.3 10 ^3/uL (0.4-5.4); Lymphocytes % (auto) 15.6 % (10.0-50.0); Mean Corpuscular Hemoglobin 27.1 pg (28.0-32.0); Mean Corpuscular Hgb Conc. 32.4 g/dL (32.0-36.0); Mean Corpuscular Volume 83.5 fL (80.0-100.0); Monocytes % (auto) 8.8 % (0.0-12.0); Neutrophils % (auto) 74.3 % (37.0-80.0); Nucleated Red Blood Cells % 1.1 %; White Blood Cell 8.1 10^3/uL (4.4-10.8)
[2023-09-03 05:33] LABS: INR 1.27 (0.9-1.15); Partial Thromboplastin Time 28.7 SEC (24.5-34.5); Prothrombin Time 13.2 sec (9.3-11.8)
[2023-09-03 05:42] LABS: Alanine Aminotransferase 17 U/L (7-40); Albumin 2.5 g/dL (3.2-4.8); Alkaline Phosphatase 149 U/L (46-116); Anion Gap 10 (5-15); Aspartate Aminotransferase 32 U/L (13-40); BUN/Creatinine Ratio 42.7 (10.0-20.0); Bilirubin, Total 0.5 mg/dL (0.2-1.0); Calcium 8.1 mg/dL (8.5-10.1); Carbon Dioxide 23 mmol/L (20-30); Chloride 122 mmol/L (98-107); Glucose 125 mg/dL (74-106); Magnesium 1.8 mg/dL (1.6-2.6); Phosphorus 2.9 mg/dL (2.4-5.1); Potassium 3.1 mmol/L (3.5-5.1); Sodium 155 mmol/L (136-145); Total Protein 5.5 g/dL (5.7-8.2)
[2023-09-03 05:49] LABS: CRP High Sensitivity 12.48 mg/dL (<1.0)
[2023-09-03 05:56] LABS: Blood Urea Nitrogen 38 mg/dL (9-23)
[2023-09-03 05:59] LABS: Lactic Acid w/Reflex 2.6 mmol/L (0.4-2.0)
[2023-09-03] MEDS: VANCOMYCIN 1GM/200ML 200 ML IV SCH (10:00)
[2023-09-03 11:14] LABS: Base Excess -6.3 mmol/L (-2.0-2.0)
[2023-09-03] MEDS: POTASSIUM CHL 20MEQ/100ML 100 ML IV SCH (16:13)
[2023-09-03] MEDS: FUROSEMIDE 20 MG/2 ML VIAL IV ONE (19:50)
[2023-09-04] VITALS (72 sets, daily range): BP systolic 116–163; BP diastolic 60–86; PULSE 80–98; RESP 10–26; TEMP 97.7–99.5; O2SAT 86–100
[2023-09-04 04:21] LABS: Basophils # (auto) 0 10 ^3/uL (0-0.2); Basophils % (auto) 0.3 % (0.0-2.0); Eosinophils # (auto) 0.1 10 ^3/uL (0-0.8); Eosinophils % (auto) 1.1 % (0.0-7.0); Hematocrit 27.4 % (36.0-46.0); Hemoglobin 8.8 g/dL (12.2-16.2); Lymphocytes # (auto) 1.6 10 ^3/uL (0.4-5.4); Lymphocytes % (auto) 16.9 % (10.0-50.0); Mean Corpuscular Hemoglobin 26.5 pg (28.0-32.0); Mean Corpuscular Hgb Conc. 31.9 g/dL (32.0-36.0); Mean Corpuscular Volume 82.8 fL (80.0-100.0); Monocytes # (auto) 0.8 10 ^3/uL (0-1.3); Monocytes % (auto) 8.5 % (0.0-12.0); Neutrophils # (auto) 6.9 10 ^3/uL (1.6-8.6); Neutrophils % (auto) 73.2 % (37.0-80.0); Nucleated Red Blood Cells % 0.4 %; Red Blood Cells 3.31 10^6/uL (4.0-5.20); Red Cell Distribution Width 17.5 % (11.8-14.3); White Blood Cell 9.4 10^3/uL (4.4-10.8)
[2023-09-04 04:47] LABS: Alanine Aminotransferase 15 U/L (7-40); Albumin 2.4 g/dL (3.2-4.8); Alkaline Phosphatase 140 U/L (46-116); Anion Gap 15 (5-15); Aspartate Aminotransferase 29 U/L (13-40); BUN/Creatinine Ratio 39.5 (10.0-20.0); Blood Urea Nitrogen 30 mg/dL (9-23); Calcium 7.9 mg/dL (8.7-10.4); Carbon Dioxide 16 mmol/L (20-30); Chloride 122 mmol/L (98-107); Glucose 139 mg/dL (74-106); Magnesium 1.4 mg/dL (1.6-2.6); Potassium 2.8 mmol/L (3.5-5.1); Sodium 153 mmol/L (136-145)
[2023-09-04 04:48] LABS: Bilirubin, Total 0.4 mg/dL (0.2-1.0); Total Protein 5.4 g/dL (5.7-8.2)
[2023-09-04] MEDS: MAGNESIUM SULFATE 1GM/100ML 100 ML IV SCH (05:44)
[2023-09-04] MEDS: POTASSIUM CHL 20MEQ/100ML 100 ML IV ONE (05:48)
[2023-09-04 07:18] LABS: Base Excess -7.3 mmol/L (-2.0-2.0)
[2023-09-04] MEDS: MAGNESIUM SULFATE 1GM/100ML 100 ML IV ONE (07:30)
[2023-09-04] MEDS: POTASSIUM CHL 20MEQ/100ML 100 ML IV SCH (07:30)
[2023-09-04] MEDS: D5W 5% 1,000 ML IV SCH (10:00)
[2023-09-04 12:17] LABS: INR 1.18 (0.9-1.15); Partial Thromboplastin Time 27.8 SEC (24.5-34.5); Prothrombin Time 12.4 sec (9.3-11.8)
[2023-09-04] MEDS: NEUTRA-PHOS TABLET PO ONE (12:41)
[2023-09-04] MEDS: ENOXAPARIN SOD 40 MG/0.4 ML SYRINGE SC SCH (12:42)
[2023-09-04] MEDS: POTASSIUM PHOSPHATE 22 MEQ in SODIUM CHL 0.9% 100 ML IV ONE (13:37)
[2023-09-04] MEDS: HYDROmorphone HCL 2 MG/ML VL/or syr IV PRN (13:38)
[2023-09-05] VITALS (88 sets, daily range): BP systolic 88–180; BP diastolic 49–117; PULSE 81–108; RESP 10–25; TEMP 98.2–99.8; O2SAT 89–98
[2023-09-05] MEDS: LORazepam 2MG/ML-1ML VIAL IV PRN (00:58)
[2023-09-05 03:58] LABS: Basophils # (auto) 0 10 ^3/uL (0-0.2); Basophils % (auto) 0.1 % (0.0-2.0); Eosinophils # (auto) 0.1 10 ^3/uL (0-0.8); Hemoglobin 8.7 g/dL (12.2-16.2); Monocytes # (auto) 0.8 10 ^3/uL (0-1.3)
[2023-09-05 03:59] LABS: Eosinophils % (auto) 1.6 % (0.0-7.0); Hematocrit 27.6 % (36.0-46.0); Lymphocytes # (auto) 1.3 10 ^3/uL (0.4-5.4); Lymphocytes % (auto) 15.4 % (10.0-50.0); Mean Corpuscular Hemoglobin 26.4 pg (28.0-32.0); Mean Corpuscular Hgb Conc. 31.5 g/dL (32.0-36.0); Mean Corpuscular Volume 83.9 fL (80.0-100.0); Neutrophils # (auto) 6.3 10 ^3/uL (1.6-8.6); Neutrophils % (auto) 73.9 % (37.0-80.0); Nucleated Red Blood Cells % 0.1 %; Red Blood Cells 3.29 10^6/uL (4.0-5.20); Red Cell Distribution Width 18.4 % (11.8-14.3); White Blood Cell 8.5 10^3/uL (4.4-10.8)
[2023-09-05 04:04] LABS: Alanine Aminotransferase 12 U/L (7-40); Albumin 2.3 g/dL (3.2-4.8); Alkaline Phosphatase 132 U/L (46-116); Anion Gap 10 (5-15); Aspartate Aminotransferase 23 U/L (13-40); BUN/Creatinine Ratio 36.1 (10.0-20.0); Blood Urea Nitrogen 26 mg/dL (9-23); Calcium 7.8 mg/dL (8.7-10.4); Carbon Dioxide 21 mmol/L (20-30); Chloride 117 mmol/L (98-107); GFR African American 108 mL/min; GFR Non-African American 89 mL/min; Glucose 138 mg/dL (74-106); Magnesium 1.6 mg/dL (1.6-2.6)
[2023-09-05 04:05] LABS: Bilirubin, Total 0.3 mg/dL (0.2-1.0); Phosphorus 1.6 mg/dL (2.4-5.1); Total Protein 5.4 g/dL (5.7-8.2)
[2023-09-05 04:07] LABS: INR 1.17 (0.9-1.15); Partial Thromboplastin Time 24.5 SEC (24.5-34.5); Prothrombin Time 12.3 sec (9.3-11.8)
[2023-09-05 04:09] LABS: Sodium 148 mmol/L (136-145)
[2023-09-05] MEDS: POTASSIUM CHL 20MEQ/100ML 100 ML IV ONE ×2 (05:51→08:55)
[2023-09-05] MEDS: NEUTRA-PHOS TABLET PO ONE (06:45)
[2023-09-05] MEDS: NEUTRA-PHOS TABLET PO SCH (08:00)
[2023-09-05] MEDS: MAGNESIUM SULFATE 1GM/100ML 100 ML IV SCH ×2 (08:55→14:16)
[2023-09-05] MEDS: FUROSEMIDE 20 MG/2 ML VIAL IV ONE (11:30)
[2023-09-05] MEDS: D5W 5% 1,000 ML IV SCH (11:30)
[2023-09-05] MEDS: POTASSIUM PHOSPHATE 44 MEQ in D5W 5% 250 ML IV ONE (13:34)
[2023-09-05] MEDS: HYDROmorphone HCL 2 MG/ML VL/or syr IV PRN (13:57)
[2023-09-06] VITALS (31 sets, daily range): BP systolic 120–173; BP diastolic 65–100; PULSE 56–105; RESP 9–24; TEMP 98.2–101.6; O2SAT 86–97
[2023-09-06 04:10] LABS: Basophils # (auto) 0 10 ^3/uL (0-0.2); Eosinophils # (auto) 0.2 10 ^3/uL (0-0.8); Hemoglobin 8.3 g/dL (12.2-16.2); Lymphocytes # (auto) 1.3 10 ^3/uL (0.4-5.4); Nucleated Red Blood Cells % 0.2 %; White Blood Cell 7.3 10^3/uL (4.4-10.8)
[2023-09-06 04:12] LABS: Basophils % (auto) 0.2 % (0.0-2.0); Eosinophils % (auto) 2.3 % (0.0-7.0); Hematocrit 25.8 % (36.0-46.0); Lymphocytes % (auto) 18.5 % (10.0-50.0); Mean Corpuscular Hemoglobin 26.6 pg (28.0-32.0); Mean Corpuscular Volume 83.1 fL (80.0-100.0); Monocytes # (auto) 0.7 10 ^3/uL (0-1.3); Monocytes % (auto) 10.2 % (0.0-12.0); Neutrophils % (auto) 68.8 % (37.0-80.0); Red Blood Cells 3.11 10^6/uL (4.0-5.20); Red Cell Distribution Width 17.9 % (11.8-14.3)
[2023-09-06 04:22] LABS: Albumin 2.3 g/dL (3.2-4.8); Alkaline Phosphatase 135 U/L (46-116); Anion Gap 7 (5-15); Aspartate Aminotransferase 23 U/L (13-40); BUN/Creatinine Ratio 36.2 (10.0-20.0); Blood Urea Nitrogen 21 mg/dL (9-23); Calcium 7.7 mg/dL (8.5-10.1); Carbon Dioxide 22 mmol/L (20-30); Chloride 115 mmol/L (98-107); Glucose 121 mg/dL (74-106); Magnesium 1.8 mg/dL (1.6-2.6); Potassium 3.2 mmol/L (3.5-5.1); Sodium 144 mmol/L (136-145)
[2023-09-06 04:23] LABS: Bilirubin, Total 0.3 mg/dL (0.2-1.0); Total Protein 5.2 g/dL (5.7-8.2)
[2023-09-06 04:38] LABS: Alanine Aminotransferase < 9 U/L (7-40)
[2023-09-06 05:56] LABS: INR 1.12 (0.9-1.15); Partial Thromboplastin Time 26.6 SEC (24.5-34.5); Prothrombin Time 11.8 sec (9.3-11.8)
[2023-09-06] MEDS: POTASSIUM CHL 20MEQ/100ML 100 ML IV ONE ×2 (06:07→10:19)
[2023-09-06 08:08] LABS: Base Excess -4.1 mmol/L (-2.0-2.0)
[2023-09-06] MEDS: PANTOPRAZOLE 40 MG/10 ML VIAL INJ IV SCH (10:00)
[2023-09-06] MEDS: FUROSEMIDE 20 MG/2 ML VIAL IV ONE (10:17)
[2023-09-06] MEDS: MAGNESIUM SULFATE 1GM/100ML 100 ML IV ONE (10:17)
[2023-09-06] MEDS: GOLYTELY 4L KIT PO ONE (11:15)
[2023-09-06] MEDS: POTASSIUM CHLORIDE 40 MEQ in SOD CHL 0.45% 1,000 ML IV SCH (11:15)
[2023-09-06] MEDS ORDERED: SODIUM PHOSP 20MEQ(15MMOL) IN NS 100 ML IV ONE (18:30)
[2023-09-06] MEDS: HYDROmorphone HCL 2 MG/ML VL/or syr IV PRN (21:20)
[2023-09-07] VITALS (51 sets, daily range): BP systolic 77–171; BP diastolic 31–91; PULSE 91–111; RESP 11–29; TEMP 97.2–101.5; O2SAT 83–100
[2023-09-07 03:47] LABS: Basophils # (auto) 0 10 ^3/uL (0-0.2); Basophils % (auto) 0.3 % (0.0-2.0); Eosinophils # (auto) 0.1 10 ^3/uL (0-0.8); Hemoglobin 8.7 g/dL (12.2-16.2); Monocytes # (auto) 0.7 10 ^3/uL (0-1.3); Nucleated Red Blood Cells % 0.1 %
[2023-09-07 03:52] LABS: Eosinophils % (auto) 1.8 % (0.0-7.0); Hematocrit 27.1 % (36.0-46.0); Lymphocytes # (auto) 1.5 10 ^3/uL (0.4-5.4); Lymphocytes % (auto) 23.2 % (10.0-50.0); Mean Corpuscular Hemoglobin 26.8 pg (28.0-32.0); Mean Corpuscular Hgb Conc. 32.3 g/dL (32.0-36.0); Monocytes % (auto) 11.4 % (0.0-12.0); Neutrophils % (auto) 63.3 % (37.0-80.0); Red Blood Cells 3.27 10^6/uL (4.0-5.20); White Blood Cell 6.3 10^3/uL (4.4-10.8)
[2023-09-07 04:06] LABS: Albumin 2.3 g/dL (3.2-4.8); Alkaline Phosphatase 141 U/L (46-116); Anion Gap 9 (5-15); Aspartate Aminotransferase 22 U/L (13-40); Bilirubin, Total 0.4 mg/dL (0.2-1.0); Blood Urea Nitrogen 18 mg/dL (9-23); Calcium 7.8 mg/dL (8.7-10.4); Carbon Dioxide 22 mmol/L (20-30); Chloride 117 mmol/L (98-107); GFR African American 153 mL/min; GFR Non-African American 127 mL/min; Glucose 103 mg/dL (74-106); Magnesium 1.7 mg/dL (1.6-2.6); Phosphorus 1.4 mg/dL (2.4-5.1); Potassium 3.2 mmol/L (3.5-5.1); Sodium 148 mmol/L (136-145); Total Protein 5.4 g/dL (5.7-8.2)
[2023-09-07 04:13] LABS: Alanine Aminotransferase < 9 U/L (7-40)
[2023-09-07 04:21] LABS: INR 1.13 (0.9-1.15); Prothrombin Time 11.9 sec (9.3-11.8)
[2023-09-07 04:51] LABS: Partial Thromboplastin Time 25.1 SEC (24.5-34.5)
[2023-09-07] MEDS: POTASSIUM CHL 20MEQ/100ML 100 ML IV SCH (08:00)
[2023-09-07] MEDS ORDERED: HYDROmorphone HCL 2 MG/ML VL/or syr ONE ×2 (09:32→11:42)
[2023-09-07] MEDS ORDERED: fentaNYL CITRATE 100 MCG/2 ML VL ONE ×2 (09:32→10:50)
[2023-09-07] MEDS ORDERED: MIDAZOLAM HCL 2MG/2ML 2ml VIAL (1mg/ml) ONE ×2 (09:33→12:57)
[2023-09-07] MEDS ORDERED: DexAMETHasone SOD PHOS 10MG/1ML VIAL INJ ONE (09:33)
[2023-09-07] MEDS: ceFAZolin 2 GM/D5W50ml 50 ML IV ONE (10:11)
[2023-09-07] MEDS: ALBUMIN 5% 250 ML IV ONE (10:21)
[2023-09-07] MEDS: ONDANSETRON HCL 4 MG/2 ML VIAL IV ONE (11:30)
[2023-09-07] MEDS ORDERED: HYDROmorphone HCL 2 MG/ML VL/or syr IV PRN (11:30)
[2023-09-07] MEDS ORDERED: MORPHINE SULFATE 4 MG/ML SYR/VIAL IV PRN (11:30)
[2023-09-07] MEDS ORDERED: MIDAZOLAM HCL 2MG/2ML 2ml VIAL (1mg/ml) IV PRN (11:30)
[2023-09-07] MEDS ORDERED: ePHEDrine SULFATE 50 MG/ML AMP IV PRN (11:30)
[2023-09-07] MEDS: NOREPINEPHRINE 8 MG/250ML KIT 250 ML IV ONE (12:37)
[2023-09-07] MEDS: CALCIUM CHLOR(10%) 100MG/ML 10ML SYRINGE IV ONE (12:51)
[2023-09-07] MEDS: NOREPINEPHRINE 8 MG/250ML KIT 250 ML IV SCH (13:00)
[2023-09-07 15:33] LABS: Basophils # (auto) 0 10 ^3/uL (0-0.2); Basophils % (auto) 0.2 % (0.0-2.0); Lymphocytes # (auto) 1.5 10 ^3/uL (0.4-5.4); Monocytes # (auto) 0.4 10 ^3/uL (0-1.3)
[2023-09-07 15:35] LABS: Eosinophils # (auto) 0.1 10 ^3/uL (0-0.8); Eosinophils % (auto) 0.4 % (0.0-7.0); Hemoglobin 10.2 g/dL (12.2-16.2); Lymphocytes % (auto) 8.5 % (10.0-50.0); Mean Corpuscular Hemoglobin 27.5 pg (28.0-32.0); Mean Corpuscular Hgb Conc. 30.8 g/dL (32.0-36.0); Mean Corpuscular Volume 89.3 fL (80.0-100.0); Monocytes % (auto) 2.3 % (0.0-12.0); Neutrophils # (auto) 15.5 10 ^3/uL (1.6-8.6); Neutrophils % (auto) 88.6 % (37.0-80.0); Nucleated Red Blood Cells % 0.7 %; Red Cell Distribution Width 18.5 % (11.8-14.3); White Blood Cell 17.5 10^3/uL (4.4-10.8)
[2023-09-07] MEDS: SODIUM BICARB 8.4% 50Meq/50ml SYR Vial IV ONE (15:36)
[2023-09-07] MEDS: SODIUM CHLORIDE 0.9% 2,000 ML IV ONE (15:45)
[2023-09-07 15:53] LABS: Alanine Aminotransferase 13 U/L (7-40); Albumin 2.1 g/dL (3.2-4.8); Alkaline Phosphatase 130 U/L (46-116); Anion Gap 8 (5-15); Aspartate Aminotransferase 72 U/L (13-40); BUN/Creatinine Ratio 20.7 (10.0-20.0); Bilirubin, Total 0.5 mg/dL (0.2-1.0); Blood Urea Nitrogen 18 mg/dL (9-23); Calcium 7.8 mg/dL (8.7-10.4); Carbon Dioxide 19 mmol/L (20-30); Chloride 120 mmol/L (98-107); Glucose 134 mg/dL (74-106); Potassium 4.9 mmol/L (3.5-5.1); Sodium 147 mmol/L (136-145); Total Protein 4.6 g/dL (5.7-8.2)
[2023-09-07] MEDS ORDERED: VANCOMYCIN PER PHARMACY 0 MG IV SCH (16:00)
[2023-09-07] MEDS: diphenhdrAMINE HCL 50 MG/1 ML VL ONE (16:22)
[2023-09-07] MEDS: diphenhdrAMINE HCL 50 MG/1 ML VL IV ONE (16:30)
[2023-09-07 17:23] LABS: Base Excess -14.2 mmol/L (-2.0-2.0)
[2023-09-07] MEDS: SODIUM BICARB 50mEq/50ml Vial 100 ML in D5W 5% 1,000 ML IV SCH (17:30)
[2023-09-07] MEDS: fentaNYL Drip 2500mCg/250mlNS 250 ML IV SCH (17:41)
[2023-09-07] MEDS: MIDAZOLAM DRIP 50 mg/50mL 50 ML IV SCH (17:49)
[2023-09-07] MEDS: MAGNESIUM SULFATE 1GM/100ML 100 ML IV SCH (18:00)
[2023-09-07 18:27] LABS: INR 1.22 (0.9-1.15); Prothrombin Time 12.7 sec (9.3-11.8)
[2023-09-07 18:37] LABS: Base Excess -13.8 mmol/L (-2.0-2.0)
[2023-09-07 19:37] LABS: Lactic Acid w/Reflex 5.2 mmol/L (0.4-2.0)
[2023-09-07] MEDS: EPINEPHrine HCL 250 ML IV SCH (20:00)
[2023-09-07] MEDS: POTASSIUM PHOSPHATE 22 MEQ in SODIUM CHL 0.9% 100 ML IV ONE (20:00)
[2023-09-07] MEDS: MICAFUNGIN SODIUM 100 MG in SODIUM CHL 0.9% 100 ML IV ONE (22:00)
[2023-09-07] MEDS: MEROPENEM 1GM IVPB 50 ML IV SCH (22:00)
[2023-09-07] MEDS: PHENYLEPHRINE IV 250 ML IV SCH (23:22)
[2023-09-07] MEDS: MEROPENEM 1GM IVPB 50 ML IV ONE (23:30)
[2023-09-07] MEDS: PANTOPRAZOLE 40 MG/10 ML VIAL INJ IV SCH (23:57)
[2023-09-08] VITALS (99 sets, daily range): BP systolic 0–160; BP diastolic 0–112; PULSE 0–135; RESP 0–31; TEMP 100–103.1; O2SAT 0–100
[2023-09-08] MEDS: VANCOMYCIN 1GM/200ML 200 ML IV ONE (00:54)
[2023-09-08 02:33] LABS: Hemoglobin 12.7 g/dL (12.2-16.2)
[2023-09-08 02:34] LABS: Hematocrit 40.1 % (36.0-46.0)
[2023-09-08] MEDS: VANCOMYCIN 1GM/200ML 200 ML IV SCH (03:00)
[2023-09-08 03:58] LABS: Hematocrit 39.5 % (36.0-46.0); Hemoglobin 12.4 g/dL (12.2-16.2); Mean Corpuscular Hemoglobin 28.7 pg (28.0-32.0); Mean Corpuscular Hgb Conc. 31.4 g/dL (32.0-36.0); Mean Corpuscular Volume 91.7 fL (80.0-100.0); Red Blood Cells 4.31 10^6/uL (4.0-5.20); Red Cell Distribution Width 17.6 % (11.8-14.3); White Blood Cell 29.5 10^3/uL (4.4-10.8)
[2023-09-08 04:05] LABS: Basophils % (manual) 0 (0.0-2.0); Blast Cells 0; Eosinophils % (manual) 0 (0-7); Metamyelocytes % 0; Promyelocytes % 0
[2023-09-08 04:12] LABS: Alanine Aminotransferase 123 U/L (7-40); Alkaline Phosphatase 177 U/L (46-116); Anion Gap 17.00001 (5-15); BUN/Creatinine Ratio 17.5 (10.0-20.0); Blood Urea Nitrogen 25 mg/dL (9-23); Calcium 7.5 mg/dL (8.7-10.4); Chloride 118 mmol/L (98-107); Glucose 113 mg/dL (74-106); Magnesium 1.8 mg/dL (1.6-2.6); Sodium 145 mmol/L (136-145)
[2023-09-08 04:13] LABS: Bilirubin, Total 0.7 mg/dL (0.2-1.0); Phosphorus 7.7 mg/dL (2.4-5.1); Total Protein 4.5 g/dL (5.7-8.2)
[2023-09-08 04:24] LABS: Aspartate Aminotransferase 2777 U/L (13-40)
[2023-09-08 04:42] LABS: Carbon Dioxide < 10 mmol/L (20-30); Potassium 5.6 mmol/L (3.5-5.1)
[2023-09-08] MEDS ORDERED: ALBUTEROL SULF 2.5 MG/0.5ML(0.5%) NEB SOLN NEB ONE (05:00)
[2023-09-08 05:22] LABS: Band Neutrophils % (manual) 18; Lymphocytes % (manual) 11 (10.0-50.0); Monocytes % (manual) 7 (0-12); Myelocytes % 1; Platelet Estimate Adequate; Reactive Lymphocytes 1
[2023-09-08] MEDS: CALCIUM GLUC 1,000mg/50ml-NS 50 ML IV ONE (05:39)
[2023-09-08] MEDS: DEXTROSE (50%) 50ML SYRG IV ONE (05:40)
[2023-09-08] MEDS: FUROSEMIDE 40 MG/4 ML VIAL IV ONE (05:40)
[2023-09-08] MEDS: InsuLIN REG 1unit/0.01ml Soln (100units/ml) IV ONE (05:41)
[2023-09-08] MEDS: D5W/SOD CHL 0.45% 1,000 ML IV SCH (07:15)
[2023-09-08 08:19] LABS: Base Excess -23.9 mmol/L (-2.0-2.0)
[2023-09-08] MEDS: VASOPRESSIN 20 UNITS in SODIUM CHL 0.9% 99 ML IV SCH (08:30)
[2023-09-08] MEDS: SODIUM BICARB 8.4% 50Meq/50ml SYR INJ ONE ×2 (08:42→17:19)
[2023-09-08] MEDS: DOPamine 1600MCG/ML D5W 250 ML IV SCH (08:45)
[2023-09-08] MEDS: SODIUM BICARB 8.4% 50Meq/50ml SYR Vial IV ONE (09:18)
[2023-09-08] MEDS: SODIUM BICARB 50mEq/50ml Vial 150 ML in D5W 5% 1,000 ML IV SCH (09:18)
[2023-09-08] MEDS: MICAFUNGIN SODIUM 100 MG in SODIUM CHL 0.9% 100 ML IV SCH (09:56)
[2023-09-08] MEDS ORDERED: TPN PER PHARMACY 0 ML IV SCH (11:15)
[2023-09-08 11:20] LABS: Hemoglobin 11.7 g/dL (12.2-16.2)
[2023-09-08 11:25] LABS: Hematocrit 37.5 % (36.0-46.0)
[2023-09-08 13:08] LABS: Base Excess -19.5 mmol/L (-2.0-2.0)
[2023-09-08] MEDS: PHENYLEPHRINE INJ 80 MG in SODIUM CHL 0.9% 242 ML IV SCH (13:47)
[2023-09-08] MEDS: NOREPINEPHRINE BITARTRATE 32 MG in SODIUM CHL 0.9% 218 ML IV SCH (13:50)
[2023-09-08 14:38] LABS: Chloride 115 mmol/L (98-107); Potassium 5.2 mmol/L (3.5-5.1); Sodium 145 mmol/L (136-145)
[2023-09-08 14:39] LABS: Anion Gap 20.00001 (5-15); Calcium 7.2 mg/dL (8.7-10.4)
[2023-09-08 14:44] LABS: BUN/Creatinine Ratio 13.7 (10.0-20.0); Blood Urea Nitrogen 24 mg/dL (9-23); Glucose 185 mg/dL (74-106)
[2023-09-08 14:47] LABS: Carbon Dioxide < 10 mmol/L (20-30)
[2023-09-08 14:49] LABS: Lactic Acid w/Reflex 11.9 mmol/L (0.4-2.0)
[2023-09-08] MEDS: HYDROCORTISONE SOD SUCC 100 MG/2ML INJ VIAL IV ONE (17:31)
[2023-09-08] MEDS: SODIUM BICARB 8.4% 50Meq/50ml SYR Vial IV SCH (17:32)
[2023-09-08] MEDS: ALBUMIN 25% 100 ML IV SCH (17:32)
[2023-09-08 18:09] LABS: Base Excess -21.4 mmol/L (-2.0-2.0)
[2023-09-08 18:34] LABS: Hematocrit 37.7 % (36.0-46.0); Hemoglobin 11.6 g/dL (12.2-16.2); Mean Corpuscular Hgb Conc. 30.9 g/dL (32.0-36.0); Mean Corpuscular Volume 93.9 fL (80.0-100.0); Red Blood Cells 4.01 10^6/uL (4.0-5.20); Red Cell Distribution Width 18.9 % (11.8-14.3)
[2023-09-08 18:47] LABS: White Blood Cell 35.3 10^3/uL (4.4-10.8)
[2023-09-08 18:48] LABS: Basophils % (manual) 0 (0.0-2.0); Blast Cells 0; Eosinophils % (manual) 0 (0-7); Metamyelocytes % 0; Myelocytes % 0; Promyelocytes % 0; Reactive Lymphocytes 0
[2023-09-08 18:55] LABS: Hematocrit 35.6 % (36.0-46.0)
[2023-09-08 19:10] LABS: Alanine Aminotransferase 153 U/L (7-40); Albumin 1.8 g/dL (3.2-4.8); Alkaline Phosphatase 354 U/L (46-116); Anion Gap 23.00001 (5-15); BUN/Creatinine Ratio 11.8 (10.0-20.0); Blood Urea Nitrogen 23 mg/dL (9-23); Calcium 7.4 mg/dL (8.7-10.4); Chloride 113 mmol/L (98-107); Glucose 138 mg/dL (74-106); Potassium 5.4 mmol/L (3.5-5.1); Sodium 146 mmol/L (136-145); Total Protein 4.1 g/dL (5.7-8.2)
[2023-09-08 19:13] LABS: Carbon Dioxide < 10 mmol/L (20-30)
[2023-09-08 19:22] LABS: Aspartate Aminotransferase 4446 U/L (13-40)
[2023-09-08 19:24] LABS: Band Neutrophils % (manual) 17; Lymphocytes % (manual) 11 (10.0-50.0); Monocytes % (manual) 3 (0-12)
[2023-09-08 19:25] LABS: Platelet Estimate Adequate
[2023-09-08] MEDS: LINEZOLID 600MG/300ML 300 ML IV SCH (19:43)
[2023-09-08] MEDS ORDERED: TPN PER PHARMACY IV NR (20:00)
[2023-09-08] MEDS ORDERED: CEFIDEROCOL 0.75 GM in SODIUM CHL 0.9% 100 ML IV SCH (22:00)
[2023-09-08] MEDS ORDERED: HYDROCORTISONE SOD SUCC 100 MG/2ML INJ VIAL IV SCH ×2 (22:00→23:00)
[2023-09-09] MEDS ORDERED: SODIUM BICARB 8.4% 50Meq/50ml SYR Vial IV SCH (02:00)
== END 2023-09-08 21:48 | DRG 710 ==
LOC: EDBD 18:08 → ER 18:08 → TELE 07-23 03:24 → ICU WEST 07-23 22:09 → DOU IN ICU 08-14 16:35 → ICU WEST 08-17 02:28 → TELE-WESTW 08-23 16:39 → DOU IN ICU 08-24 06:10 → ICU WEST 09-03 11:31
PROVIDERS: ADMIT Internal Medicine Pulmonary Disease; ATTEND Internal Medicine Pulmonary Disease
PROC: 02H633Z Insertion of Infusion Device into Right Atrium, Percutaneous Approach (ICD-10-PCS; 2023-07-23)
PROC: 5A09357 Assistance with Respiratory Ventilation, Less than 24 Consecutive Hours, Continuous Positive Airway Pressure (ICD-10-PCS; principal; 2023-07-24)
PROC: 0BH17EZ Insertion of Endotracheal Airway into Trachea, Via Natural or Artificial Opening (ICD-10-PCS; 2023-07-24)
PROC: 5A1955Z Respiratory Ventilation, Greater than 96 Consecutive Hours (ICD-10-PCS; 2023-07-24)
PROC: 0B9B8ZZ Drainage of Left Lower Lobe Bronchus, Via Natural or Artificial Opening Endoscopic (ICD-10-PCS; 2023-07-25)
PROC: 0B958ZZ Drainage of Right Middle Lobe Bronchus, Via Natural or Artificial Opening Endoscopic (ICD-10-PCS; 2023-07-25)
PROC: 0B968ZZ Drainage of Right Lower Lobe Bronchus, Via Natural or Artificial Opening Endoscopic (ICD-10-PCS; 2023-07-25)
PROC: 02HV33Z Insertion of Infusion Device into Superior Vena Cava, Percutaneous Approach (ICD-10-PCS; 2023-07-25)
PROC: 03HY32Z Insertion of Monitoring Device into Upper Artery, Percutaneous Approach (ICD-10-PCS; 2023-07-25)
PROC: 5A1D70Z Performance of Urinary Filtration, Intermittent, Less than 6 Hours Per Day (ICD-10-PCS; 2023-07-25)
PROC: 04HY32Z Insertion of Monitoring Device into Lower Artery, Percutaneous Approach (ICD-10-PCS; 2023-07-26)
PROC: 0F9430Z Drainage of Gallbladder with Drainage Device, Percutaneous Approach (ICD-10-PCS; 2023-08-03)
PROC: 02HV33Z Insertion of Infusion Device into Superior Vena Cava, Percutaneous Approach (ICD-10-PCS; 2023-08-06)
PROC: B548ZZA Ultrasonography of Superior Vena Cava, Guidance (ICD-10-PCS; 2023-08-06)
PROC: 02HV33Z Insertion of Infusion Device into Superior Vena Cava, Percutaneous Approach (ICD-10-PCS; 2023-08-09)
PROC: B548ZZA Ultrasonography of Superior Vena Cava, Guidance (ICD-10-PCS; 2023-08-09)
PROC: 02HV33Z Insertion of Infusion Device into Superior Vena Cava, Percutaneous Approach (ICD-10-PCS; 2023-08-17)
PROC: 5A09357 Assistance with Respiratory Ventilation, Less than 24 Consecutive Hours, Continuous Positive Airway Pressure (ICD-10-PCS; 2023-08-24)
PROC: 02HV33Z Insertion of Infusion Device into Superior Vena Cava, Percutaneous Approach (ICD-10-PCS; 2023-08-24)
PROC: 30233N1 Transfusion of Nonautologous Red Blood Cells into Peripheral Vein, Percutaneous Approach (ICD-10-PCS; 2023-08-24)
PROC: 5A09357 Assistance with Respiratory Ventilation, Less than 24 Consecutive Hours, Continuous Positive Airway Pressure (ICD-10-PCS; 2023-08-25)
PROC: 5A09357 Assistance with Respiratory Ventilation, Less than 24 Consecutive Hours, Continuous Positive Airway Pressure (ICD-10-PCS; 2023-08-26)
PROC: 5A09357 Assistance with Respiratory Ventilation, Less than 24 Consecutive Hours, Continuous Positive Airway Pressure (ICD-10-PCS; 2023-08-27)
PROC: 5A09357 Assistance with Respiratory Ventilation, Less than 24 Consecutive Hours, Continuous Positive Airway Pressure (ICD-10-PCS; 2023-08-28)
PROC: 5A09357 Assistance with Respiratory Ventilation, Less than 24 Consecutive Hours, Continuous Positive Airway Pressure (ICD-10-PCS; 2023-08-29)
PROC: 5A09357 Assistance with Respiratory Ventilation, Less than 24 Consecutive Hours, Continuous Positive Airway Pressure (ICD-10-PCS; 2023-08-30)
PROC: 02HV33Z Insertion of Infusion Device into Superior Vena Cava, Percutaneous Approach (ICD-10-PCS; 2023-08-31)
PROC: B548ZZA Ultrasonography of Superior Vena Cava, Guidance (ICD-10-PCS; 2023-08-31)
PROC: 5A09457 Assistance with Respiratory Ventilation, 24-96 Consecutive Hours, Continuous Positive Airway Pressure (ICD-10-PCS; 2023-08-31)
PROC: 5A09357 Assistance with Respiratory Ventilation, Less than 24 Consecutive Hours, Continuous Positive Airway Pressure (ICD-10-PCS; 2023-09-01)
PROC: 30233K1 Transfusion of Nonautologous Frozen Plasma into Peripheral Vein, Percutaneous Approach (ICD-10-PCS; 2023-09-02)
PROC: 06HM33Z Insertion of Infusion Device into Right Femoral Vein, Percutaneous Approach (ICD-10-PCS; 2023-09-06)
PROC: B54BZZA Ultrasonography of Right Lower Extremity Veins, Guidance (ICD-10-PCS; 2023-09-06)
PROC: 05HN33Z Insertion of Infusion Device into Left Internal Jugular Vein, Percutaneous Approach (ICD-10-PCS; 2023-09-07)
PROC: B544ZZA Ultrasonography of Left Jugular Veins, Guidance (ICD-10-PCS; 2023-09-07)
PROC: 5A1945Z Respiratory Ventilation, 24-96 Consecutive Hours (ICD-10-PCS; 2023-09-07)
PROC: 0DB80ZZ Excision of Small Intestine, Open Approach (ICD-10-PCS; 2023-09-07)
PROC: 0DNU0ZZ Release Omentum, Open Approach (ICD-10-PCS; 2023-09-07)
PROC: 0DNL0ZZ Release Transverse Colon, Open Approach (ICD-10-PCS; 2023-09-07)
DX: A41.89 Other specified sepsis (principal); J80 Acute respiratory distress syndrome; K55.069 Acute infarction of intestine, part and extent unspecified; N17.0 Acute kidney failure with tubular necrosis; K65.1 Peritoneal abscess; K56.50 Intestinal adhesions [bands], unspecified as to partial versus complete obstruction; R65.21 Severe sepsis with septic shock; R57.1 Hypovolemic shock; G93.41 Metabolic encephalopathy; K65.9 Peritonitis, unspecified; K56.609 Unspecified intestinal obstruction, unspecified as to partial versus complete obstruction; I50.33 Acute on chronic diastolic (congestive) heart failure; J18.9 Pneumonia, unspecified organism; E87.21 Acute metabolic acidosis; F15.10 Other stimulant abuse, uncomplicated; E87.6 Hypokalemia; N18.9 Chronic kidney disease, unspecified; E87.5 Hyperkalemia; K56.7 Ileus, unspecified; R74.01 Elevation of levels of liver transaminase levels; E66.01 Morbid (severe) obesity due to excess calories; K82.8 Other specified diseases of gallbladder; F19.239 Other psychoactive substance dependence with withdrawal, unspecified; I13.0 Hypertensive heart and chronic kidney disease with heart failure and stage 1 through stage 4 chronic kidney disease, or unspecified chronic kidney disease; I47.10 Supraventricular tachycardia, unspecified; K52.9 Noninfective gastroenteritis and colitis, unspecified; N39.0 Urinary tract infection, site not specified; E83.42 Hypomagnesemia; K85.90 Acute pancreatitis without necrosis or infection, unspecified; D68.9 Coagulation defect, unspecified; K80.00 Calculus of gallbladder with acute cholecystitis without obstruction; I88.0 Nonspecific mesenteric lymphadenitis; E87.0 Hyperosmolality and hypernatremia; G47.00 Insomnia, unspecified; J43.9 Emphysema, unspecified; D64.9 Anemia, unspecified; I82.613 Acute embolism and thrombosis of superficial veins of upper extremity, bilateral; E83.39 Other disorders of phosphorus metabolism; Z68.42 Body mass index [BMI] 45.0-49.9, adult; Z87.891 Personal history of nicotine dependence; Z99.11 Dependence on respirator [ventilator] status; Z82.5 Family history of asthma and other chronic lower respiratory diseases; Z82.3 Family history of stroke; I46.9 Cardiac arrest, cause unspecified
CPT/HCPCS: 36415; 36569; 36600; 47532; 70450; 71045; 71250; 71260; 74018; 74176; 74177; 74181; 74250; 76000; 76604; 76705; 76775; 76937; 76942; 80048; 80053; 80061; 80069; 80074; 80076; 80202; 80307; 81001; 82140; 82150; 82248; 82270; 82533; 82550; 82570; 82728; 82805; 82962; 83036; 83516; 83520; 83540; 83550; 83605; 83615; 83690; 83735; 83880; 83986; 84100; 84132; 84156; 84300; 84439; 84443; 84478; 84481; 84484; 85007; 85014; 85018; 85025; 85027; 85045; 85048; 85379; 85610; 85730; 86141; 86160; 86225; 86235; 86256; 86592; 86703; 86850; 86900; 86901; 86920; 87040; 87045; 87070; 87077; 87081; 87086; 87088; 87186; 87205; 87427; 87493; 87804; 90935; 92610; 93005; 93306; 93925; 93970; 93971; 94002; 94003; 94640; 94660; 96361; 96365; 96366; 96367; 96375; 97110; 97163; 97530; 99152; 99291; C9113; G0378; J0131; J0153; J0171; J1100; J1450; J1815; J1885; J2001; J2185; J2248; J2250; J2405; J2470; J2543; J3430; J3480; J7060; P9047; Q9967